=== PATIENT | male | born 1940 | race Caucasian/White ===

== ENCOUNTER 2018-07-10 06:37 | Emergency (ER) | payer MEDICARE ==
[2018-07-10 07:01] VITALS: TEMP 98.6
[2018-07-10 08:25] LABS: Appearance,Urine Clear (Clear); Bilirubin,Urine Negative (Negative); Blood,Urine Negative (Negative); Color,Urine Yellow; Glucose,Urine (UA) Negative (Negative); Ketones,Urine Negative (Negative); Leukocyte Esterase,Urine Negative (Negative); Mucus,Urine Rare /hpf; Nitrite,Urine Negative (Negative); PH, Urine 6.5 (5.0-8.0); Protein,Urine 1+ (Negative); RBC,Urine 1 /hpf (0-5); Specific Gravity,Urine 1.024 (1.001-1.035); WBC,Urine 2 /hpf (0-5)
[2018-07-10 09:04] LABS: Amphetamine Screen,Urine Not Detected (NotDetected); Barbiturate Screen,Urine Not Detected (NotDetected); Benzodiazepines Screen,Urine Not Detected (NotDetected); Cocaine Screen,Urine Not Detected (NotDetected); Methadone Screen, Urine Not Detected (NotDetected); Opiate Screen,Urine Not Detected (NotDetected); Oxycodone Screen, Urine Not Detected (NotDetected); Phencyclidine Screen,Urine Not Detected (NotDetected); Tricyclic Antidepressant,Urine Not Detected (NotDetected); Urn Cannabinoid Scrn Not Detected (NotDetected)
--- NOTE | 2018-07-10 09:08 | XR ---
EXAMINATION TYPE: XR chest 2V DATE OF EXAM: 07/10/2018 COMPARISON: NONE HISTORY: Cough per order. TECHNIQUE: Frontal and lateral views of the chest are obtained. FINDINGS: Background chronic emphysematous change is felt present. There is no focal air space opacit y, pleural effusion, or pneumothorax seen. The cardiac silhouette size is upper limits of normal. Po stsurgical change to left shoulder is partially imaged. Multilevel spurring in the thoracic spine is present. IMPRESSION: Chronic changes without acute pulmonary process.
[2018-07-10 09:14] LABS: Basophils # (A) 0.1 k/uL (0-0.2); Basophils % (A) 1 %; Eosinophils # (A) 0.2 k/uL (0-0.7); Eosinophils % (A) 3 %; HCT 45.8 % (39.0-53.0); Lymphocytes # (A) 1.4 k/uL (1.0-4.8); Lymphocytes % (A) 17 %; MCH 31.3 pg (25.0-35.0); MCHC 32.7 g/dL (31.0-37.0); MCV 95.7 fL (80.0-100.0); Mean Platelet Volume 7.6; Monocytes # (A) 0.6 k/uL (0-1.0); Monocytes % (A) 7 %; Neutrophils % (A) 72 %; Platelet Count 155 k/uL (150-450); RBC 4.78 m/uL (4.30-5.90); RDW 15.1 % (11.5-15.5); WBC 8.3 k/uL (3.8-10.6)
[2018-07-10 09:17] LABS: ALT 29 U/L (21-72); AST 24 U/L (17-59); Albumin 3.5 g/dL (3.5-5.0); Alkaline Phosphatase 59 U/L (38-126); Anion Gap 4 mmol/L; Blood Urea Nitrogen 15 mg/dL (9-20); Carbon Dioxide 26 mmol/L (22-30); Chloride 109 mmol/L (98-107); Glucose 103 mg/dL (74-99); Potassium 4.3 mmol/L (3.5-5.1); Sodium 139 mmol/L (137-145); Total Bilirubin 2.4 mg/dL (0.2-1.3); Total Protein 5.9 g/dL (6.3-8.2)
[2018-07-10 09:43] LABS: Creatine Kinase MB 1.2 ng/mL (0.0-2.4)
[2018-07-10 09:47] LABS: Troponin I 0.035 ng/mL (0.000-0.034)
--- NOTE | 2018-07-10 13:07 | ED ---
Psych HPI - General Chief Complaint: Psychiatric Symptoms Stated Complaint: Mental health Time Seen by Provider: 07/10/18 07:44 Source: patient, RN notes reviewed Mode of arrival: ambulatory - History of Present Illness Initial Comments: This is a 70-year-old male history depression who over the past 2 weeks is had his medication which included trazodone and she takes for sleep also Wellbutrin. He's been here from [place] for that period time he states been feeling more depressed and despondent these has some dizziness lightheadedness no fevers chills sweats or chest pain he's been having strange thoughts but denies any overt suicidal thought or ideation. No other complaints at this time MD Complaint: feels depressed - Related Data Home Medications Medication Instructions Recorded Confirmed Acetaminophen [Tylenol] 500 mg PO Q6H PRN 07/10/18 07/10/18 Apixaban [Eliquis] 5 mg PO BID 07/10/18 07/10/18 Furosemide [Lasix] 40 mg PO DAILY 07/10/18 07/10/18 Metoprolol Tartrate [Lopressor] 100 mg PO BID 07/10/18 07/10/18 buPROPion XL [Wellbutrin Xl] 300 mg PO DAILY 07/10/18 07/10/18 traZODone HCL [Desyrel] 200 - 400 mg PO HS 07/10/18 07/10/18 Previous Rx's Medication Instructions Recorded buPROPion XL [Wellbutrin Xl] 300 mg PO DAILY #30 tab.er.24h 07/10/18 Allergies Allergy/AdvReac Type Severity Reaction Status Date / Time amoxicillin AdvReac Nausea & Verified 07/10/18 07:56 Vomiting Review of Systems ROS Statement: Those systems with pertinent positive or pertinent negative responses have been documented in the HPI. ROS Other: All systems not noted in ROS Statement are negative. Past Medical History Past Medical History: Atrial Fibrillation, Hypertension History of Any Multi-Drug Resistant Organisms: MRSA Date of last positivie culture/infection: 2009 MDRO Source:: left hip Past Surgical History: Joint Replacement, Orthopedic Surgery Additional Past Surgical History / Comment(s): bilateral knees, left hip, cataract sx bilateral, shoulder sx Past Psychological History: Anxiety, Depression Smoking Status: Never smoker Past Alcohol Use History: Rare Past Drug Use History: None Reported General Exam - General Exam Comments Initial Comments: Is a well-developed well-nourished awake alert oriented 3 male Limitations: no limitations General appearance: alert, in no apparent distress Head exam: Present: atraumatic, normocephalic, normal inspection Eye exam: Present: normal appearance, PERRL, EOMI. Absent: scleral icterus, conjunctival injection, periorbital swelling ENT exam: Present: normal exam, mucous membranes moist Neck exam: Present: normal inspection. Absent: tenderness, meningismus, lymphadenopathy Respiratory exam: Present: normal lung sounds bilaterally. Absent: respiratory distress, wheezes, rales, rhonchi, stridor Cardiovascular Exam: Present: irregular rhythm. Absent: systolic murmur, diastolic murmur, rubs, gallop, clicks GI/Abdominal exam: Present: soft, normal bowel sounds. Absent: distended, tenderness, guarding, rebound, rigid Extremities exam: Present: normal inspection, full ROM, normal capillary refill. Absent: tenderness, pedal edema, joint swelling, calf tenderness Back exam: Present: other (Some kyphosis noted) Neurological exam: Present: alert, oriented X3, CN II-XII intact Psychiatric exam: Present: depressed, flat affect. Absent: suicidal ideation Skin exam: Present: warm, dry, intact, normal color. Absent: rash Course Vital Signs 07/10/18 06:51 Temperature 98.6 F Pulse Rate 72 Respiratory 20 Rate Blood Pressure 155/92 O2 Sat by Pulse 96 Oximetry Medical Decision Making - Medical Decision Making Patient was medically cleared. He has evaluate the patient is currently not a risk to himself or anyone COPD discharged and accommodation*Benadryl abuse and p.m. for sleep Wellbutrin to be - Lab Data Result diagrams: 07/10/18 08:48 07/10/18 08:48 Lab Results 07/10/18 07/10/18 07/10/18 Range/Units 08:15 08:48 08:48 WBC 8.3 (3.8-10.6) k/uL RBC 4.78 (4.30-5.90) m/uL Hgb 15.0 (13.0-17.5) gm/dL Hct 45.8 (39.0-53.0) % MCV 95.7 (80.0-100.0) fL MCH 31.3 (25.0-35.0) pg MCHC 32.7 (31.0-37.0) g/dL RDW 15.1 (11.5-15.5) % Plt Count 155 (150-450) k/uL Neutrophils % 72 % Lymphocytes % 17 % Monocytes % 7 % Eosinophils % 3 % Basophils % 1 % Neutrophils # 6.0 (1.3-7.7) k/uL Lymphocytes # 1.4 (1.0-4.8) k/uL Monocytes # 0.6 (0-1.0) k/uL Eosinophils # 0.2 (0-0.7) k/uL Basophils # 0.1 (0-0.2) k/uL Sodium (137-145) mmol/L Potassium (3.5-5.1) mmol/L Chloride (98-107) mmol/L Carbon Dioxide (22-30) mmol/L Anion Gap mmol/L BUN (9-20) mg/dL Creatinine (0.66-1.25) mg/dL Est GFR (CKD-EPI)AfAm (>60 ml/min/1.73 sqM) Est GFR (CKD-EPI)NonAf (>60 ml/min/1.73 sqM) Glucose (74-99) mg/dL Calcium (8.4-10.2) mg/dL Magnesium (1.6-2.3) mg/dL Total Bilirubin (0.2-1.3) mg/dL AST (17-59) U/L ALT (21-72) U/L Alkaline Phosphatase (38-126) U/L Total Creatine Kinase 82 (55-170) U/L CK-MB (CK-2) 1.2 (0.0-2.4) ng/mL CK-MB (CK-2) Rel Index 1.5 Troponin I 0.035 H* (0.000-0.034) ng/mL Total Protein (6.3-8.2) g/dL Albumin (3.5-5.0) g/dL Urine Color Yellow Urine Appearance Clear (Clear) Urine pH 6.5 (5.0-8.0) Ur Specific [place] 1.024 (1.001-1.035) Urine Protein 1+ H (Negative) Urine Glucose (UA) Negative (Negative) Urine Ketones Negative (Negative) Urine Blood Negative (Negative) Urine Nitrite Negative (Negative) Urine Bilirubin Negative (Negative) Urine Urobilinogen 12.0 (<2.0) mg/dL Ur Leukocyte Esterase Negative (Negative) Urine RBC 1 (0-5) /hpf Urine WBC 2 (0-5) /hpf Urine Mucus Rare H (None) /hpf Urine Opiates Screen Not Detected (NotDetected) Ur Oxycodone Screen Not Detected (NotDetected) Urine Methadone Screen Not Detected (NotDetected) Ur Propoxyphene Screen Not Detected (NotDetected) Ur Barbiturates Screen Not Detected (NotDetected) U Tricyclic Antidepress Not Detected (NotDetected) Ur Phencyclidine Scrn Not Detected (NotDetected) Ur Amphetamines Screen Not Detected (NotDetected) U Methamphetamines Scrn Not Detected (NotDetected) U Benzodiazepines Scrn Not Detected (NotDetected) Urine Cocaine Screen Not Detected (NotDetected) U Marijuana (THC) Screen Not Detected (NotDetected) 07/10/18 07/10/18 Range/Units 08:48 12:16 WBC (3.8-10.6) k/uL RBC (4.30-5.90) m/uL Hgb (13.0-17.5) gm/dL Hct (39.0-53.0) % MCV (80.0-100.0) fL MCH (25.0-35.0) pg MCHC (31.0-37.0) g/dL RDW (11.5-15.5) % Plt Count (150-450) k/uL Neutrophils % % Lymphocytes % % Monocytes % % Eosinophils % % Basophils % % Neutrophils # (1.3-7.7) k/uL Lymphocytes # (1.0-4.8) k/uL Monocytes # (0-1.0) k/uL Eosinophils # (0-0.7) k/uL Basophils # (0-0.2) k/uL Sodium 139 (137-145) mmol/L Potassium 4.3 (3.5-5.1) mmol/L Chloride 109 H (98-107) mmol/L Carbon Dioxide 26 (22-30) mmol/L Anion Gap 4 mmol/L BUN 15 (9-20) mg/dL Creatinine 0.82 (0.66-1.25) mg/dL Est GFR (CKD-EPI)AfAm >90 (>60 ml/min/1.73 sqM) Est GFR (CKD-EPI)NonAf 85 (>60 ml/min/1.73 sqM) Glucose 103 H (74-99) mg/dL Calcium 9.0 (8.4-10.2) mg/dL Magnesium 2.0 (1.6-2.3) mg/dL Total Bilirubin 2.4 H (0.2-1.3) mg/dL AST 24 (17-59) U/L ALT 29 (21-72) U/L Alkaline Phosphatase 59 (38-126) U/L Total Creatine Kinase (55-170) U/L CK-MB (CK-2) (0.0-2.4) ng/mL CK-MB (CK-2) Rel Index Troponin I 0.029 (0.000-0.034) ng/mL Total Protein 5.9 L (6.3-8.2) g/dL Albumin 3.5 (3.5-5.0) g/dL Urine Color Urine Appearance (Clear) Urine pH (5.0-8.0) Ur Specific [place] (1.001-1.035) Urine Protein (Negative) Urine Glucose (UA) (Negative) Urine Ketones (Negative) Urine Blood (Negative) Urine Nitrite (Negative) Urine Bilirubin (Negative) Urine Urobilinogen (<2.0) mg/dL Ur Leukocyte Esterase (Negative) Urine RBC (0-5) /hpf Urine WBC (0-5) /hpf Urine Mucus (None) /hpf Urine Opiates Screen (NotDetected) Ur Oxycodone Screen (NotDetected) Urine Methadone Screen (NotDetected) Ur Propoxyphene Screen (NotDetected) Ur Barbiturates Screen (NotDetected) U Tricyclic Antidepress (NotDetected) Ur Phencyclidine Scrn (NotDetected) Ur Amphetamines Screen (NotDetected) U Methamphetamines Scrn (NotDetected) U Benzodiazepines Scrn (NotDetected) Urine Cocaine Screen (NotDetected) U Marijuana (THC) Screen (NotDetected) - EKG Data -: EKG Interpreted by Me (EKG did show evidence of atrial fibrillation rate was 69 QRS 84 QT since QT) - Radiology Data Radiology results: report reviewed (Did review the imaging and report no acute findings.), image reviewed Disposition Clinical Impression: Depression, Adjustment reaction Disposition: HOME SELF-CARE Condition: Good Instructions (If sedation given, give patient instructions): Stress (ED), Mood Disorders (ED), Depression (ED) Prescriptions: buPROPion XL [Wellbutrin Xl] 300 mg PO DAILY #30 tab.er.24h Is patient prescribed a controlled substance at d/c from ED?: No Referrals: Inderjit Velazco MD [Primary Care Provider] - 1-2 days
[2018-07-10 13:21] VITALS: BP 149/78; PULSE 68; RESP 18
== END 2018-07-10 13:19 | disposition home or self-care (01) ==
LOC: EC 06:37
DX: F32.9 Major depressive disorder, single episode, unspecified (principal); F43.20 Adjustment disorder, unspecified; I48.91 Unspecified atrial fibrillation; I10 Essential (primary) hypertension; F41.9 Anxiety disorder, unspecified; Z86.14 Personal history of Methicillin resistant Staphylococcus aureus infection; Z79.01 Long term (current) use of anticoagulants; Z79.899 Other long term (current) drug therapy; Z88.0 Allergy status to penicillin; Z96.653 Presence of artificial knee joint, bilateral; Z96.642 Presence of left artificial hip joint
CPT/HCPCS: 36415; 71046; 80053; 80306; 81001; 82075; 82550; 82553; 83735; 84484; 85025; 93005; 99284

== ENCOUNTER → 2019-01-29 | Outpatient (CLI) | payer MEDICARE ==
--- NOTE | 2019-01-29 14:33 | XR ---
EXAMINATION TYPE: XR orbit complete bilateral DATE OF EXAM: 01/29/2019 COMPARISON: None HISTORY: Retained foreign body in the orbits TECHNIQUE: Three-view orbits FINDINGS: No metallic foreign bodies are evident within or about the orbits. Dental hardware is noted . IMPRESSION: 1. No metallic foreign bodies to contraindicate MRI
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
== END | disposition home or self-care (01) ==
LOC: RADMRIMAIN 13:30
PROVIDERS: ATTEND Internal Medicine
DX: G31.9 Degenerative disease of nervous system, unspecified (principal); I67.82 Cerebral ischemia; Z87.821 Personal history of retained foreign body fully removed
CPT/HCPCS: 70200; 70551

== ENCOUNTER → 2019-06-16 | Outpatient (CLI) | payer MEDICARE ==
[2019-06-16 19:24] LABS: African American GFR (CKD) 82.6 (60.0-200.0); Anion Gap 7.9 mmol/L (4.00-12.00); Calcium 9.7 mg/dL (8.7-10.3); Carbon Dioxide 32.1 mmol/L (21.6-31.8); Non-African American GFR(CKD) 71.3 (60.0-200.0); Potassium 3.9 mmol/L (3.5-5.5)
== END | disposition home or self-care (01) ==
LOC: LABWHC1 10:39
PROVIDERS: ATTEND Internal Medicine Interventional Cardiology
DX: N18.9 Chronic kidney disease, unspecified (principal); I50.9 Heart failure, unspecified
CPT/HCPCS: 36415; 80048

== ENCOUNTER → 2019-07-21 | Outpatient (CLI) | payer MEDICARE ==
[2019-07-21 16:17] LABS: Anion Gap 8.6 mmol/L (4.00-12.00); BUN/Creat Ratio 17.86 Ratio (12.00-20.00); Calcium 9.6 mg/dL (8.7-10.3); Carbon Dioxide 32.4 mmol/L (21.6-31.8); Non-African American GFR(CKD) 47.4 (60.0-200.0); Potassium 3.4 mmol/L (3.5-5.5)
== END | disposition home or self-care (01) ==
LOC: LABWHC1 10:11
PROVIDERS: ATTEND Internal Medicine Interventional Cardiology
DX: N18.9 Chronic kidney disease, unspecified (principal)
CPT/HCPCS: 36415; 80048

== ENCOUNTER → 2019-08-03 | Outpatient (CLI) | payer MEDICARE | END | disposition home or self-care (01) | LOC: CPPFTMAIN 10:16 | PROVIDERS: ATTEND Internal Medicine | DX: R94.2 Abnormal results of pulmonary function studies (principal); R06.00 Dyspnea, unspecified | CPT/HCPCS: 94060; 94726; 94729 ==

== ENCOUNTER 2019-09-04 12:35 | Emergency (ER) | payer MEDICARE ==
[2019-09-04 12:42] VITALS: TEMP 98
[2019-09-04] MEDS ORDERED: ACETAMINOPHEN TAB 325 MG TAB PO STA (13:17)
--- NOTE | 2019-09-04 14:17 | CT ---
EXAMINATION TYPE: CT brain del tong con DATE OF EXAM: 09/04/2019 COMPARISON: None HISTORY: Fall Headache. Neck pain CT DLP: 1538 mGycm Automated exposure control for dose reduction was used. Exam performed without contrast. There is cerebral cortical atrophy. There is no mass effect nor midline shift. There is no sign of in tracranial hemorrhage. Skull base is intact. The calvarium is intact. Cervical vertebra have normal alignment. There is some disc space narrowing at C5-6 and C6-7. There i s mild spurring of the endplates. The posterior elements are intact. There is multilevel level hypert rophic cervical facet arthropathy. There is no evidence of a fracture. There is uncovertebral spurrin g and right side C3-4 neural foraminal stenosis. There is some bony spinal stenosis at C3-4. IMPRESSION: Cerebral atrophy. No acute intracranial abnormality. Multilevel cervical spondylotic changes. No fracture seen.
[2019-09-04 14:18] VITALS: RESP 18
--- NOTE | 2019-09-04 14:19 | XR ---
EXAMINATION TYPE: XR ribs RT w pa chest xray DATE OF EXAM: 09/04/2019 COMPARISON: 07/10/2018 HISTORY: Fall. Rib pain. TECHNIQUE: 5 views FINDINGS: Heart is normal. The lungs are clear of consolidation. There is no pleural effusion or pneu mothorax. There is some arthritic change in the right shoulder joint. There is deformity of the anter ior right 10th rib suggestive of an old fracture. I see no acute fracture. There is old fracture late ral anterior right seventh rib. IMPRESSION: No active cardiopulmonary disease. No acute rib fracture seen.
--- NOTE | 2019-09-04 14:20 | ED ---
Fall HPI - General Chief Complaint: Fall Stated Complaint: Fall Time Seen by Provider: 09/04/19 12:38 Source: EMS Mode of arrival: EMS - History of Present Illness Initial Comments: Patient is a 79-year-old male past history of A. fib on Eliquis who presents to the emergency department after sustaining a fall. Patient does have issues with coordination. states that he is being evaluated currently for Parkinson disease. He walks daily. Patient reports that he lost his balance and began running to try and catch his balance. Patient's mated onto the grass and fell onto his right side. He is reporting to mild right shoulder pain and pain to his right flank. He is on anticoagulation. Has abrasions to his nasal bridge which he thinks is secondary to his glasses. I believe he hit his head. Denies any neck pain. No painful or tremors. No abdominal pain. No syncopal episode. No other alleviating, precipitating or modifying factors - Related Data Home Medications Medication Instructions Recorded Confirmed Acetaminophen [Tylenol] 500 mg PO Q6H PRN 07/10/18 07/10/18 Apixaban [Eliquis] 5 mg PO BID 07/10/18 07/10/18 Furosemide [Lasix] 40 mg PO DAILY 07/10/18 07/10/18 Metoprolol Tartrate [Lopressor] 100 mg PO BID 07/10/18 07/10/18 buPROPion XL [Wellbutrin Xl] 300 mg PO DAILY 07/10/18 07/10/18 traZODone HCL [Desyrel] 200 - 400 mg PO HS 07/10/18 07/10/18 Previous Rx's Medication Instructions Recorded buPROPion XL [Wellbutrin Xl] 300 mg PO DAILY #30 tab.er.24h 07/10/18 Allergies Allergy/AdvReac Type Severity Reaction Status Date / Time amoxicillin AdvReac Nausea & Verified 07/10/18 07:56 Vomiting Review of Systems ROS Statement: Those systems with pertinent positive or pertinent negative responses have been documented in the HPI. ROS Other: All systems not noted in ROS Statement are negative. Past Medical History Past Medical History: Atrial Fibrillation, Hypertension History of Any Multi-Drug Resistant Organisms: MRSA Date of last positivie culture/infection: 2009 MDRO Source:: left hip Past Surgical History: Joint Replacement, Orthopedic Surgery Additional Past Surgical History / Comment(s): bilateral knees, left hip, cataract sx bilateral, shoulder sx Past Psychological History: Anxiety, Depression Smoking Status: Never smoker Past Alcohol Use History: Rare Past Drug Use History: None Reported General Exam Limitations: no limitations Course Vital Signs 09/04/19 09/04/19 09/04/19 12:38 14:17 14:48 Temperature 98.0 F 98.0 F Pulse Rate 64 50 L 95 Respiratory 16 18 18 Rate Blood Pressure 126/75 126/75 134/78 O2 Sat by Pulse 96 96 95 Oximetry Medical Decision Making - Medical Decision Making Upon arrival patient is placed into room 8. A thorough history and physical exam was performed. Patient is sent over for a CT of his brain and cervical spine. X-rays are also performed the patient's right shoulder and right-sided ribs with chest x-ray. CT of the patient's brain and cervical spine demonstrates cerebral atrophy. No acute intracranial abnormality. Multilevel cervical spondylitic changes. No fractures seen. X-ray of the patient's right rib does demonstrate multiple old right rib fractures of ribs 7 and 10. No active cardio pulmonary disease. No acute rib fracture. X-ray of the right shoulder demonstrates moderate arthritis. The patient is able to get up and ambulates well on his own. He is able to move all of his extremities. Patient will be discharged home at this time. Follow up with his primary care physician in regards to his symptoms. Return to the emergency department for any new or worsening symptoms per patient was discharged in stable condition Disposition Clinical Impression: Fall, Right shoulder pain, Rib pain on right side Disposition: HOME SELF-CARE Condition: Stable Instructions (If sedation given, give patient instructions): Fall Prevention for Older Adults (ED) Additional Instructions: Please follow up with your primary care doctor. Return to the emergency room if any new or worsening symptoms Is patient prescribed a controlled substance at d/c from ED?: No Referrals: Inderjit Velazco MD [Primary Care Provider] - 1-2 days Time of Disposition: 14:33
--- NOTE | 2019-09-04 14:22 | XR ---
EXAMINATION TYPE: XR shoulder complete RT DATE OF EXAM: 09/04/2019 COMPARISON: NONE HISTORY: Shoulder pain TECHNIQUE: 3 views FINDINGS: There is narrowing and spurring at the glenohumeral joint. There is spurring at the AC join t. I see no fracture nor dislocation. IMPRESSION: Moderate osteoarthritis. No fracture seen.
[2019-09-04 14:50] VITALS: BP 134/78; PULSE 95
== END 2019-09-04 14:53 | disposition home or self-care (01) ==
LOC: EC 12:35
DX: M47.812 Spondylosis without myelopathy or radiculopathy, cervical region (principal); M13.811 Other specified arthritis, right shoulder; I10 Essential (primary) hypertension; R07.81 Pleurodynia; R10.9 Unspecified abdominal pain; G31.9 Degenerative disease of nervous system, unspecified; F41.9 Anxiety disorder, unspecified; F32.9 Major depressive disorder, single episode, unspecified; Z79.01 Long term (current) use of anticoagulants; Z79.899 Other long term (current) drug therapy; Z88.0 Allergy status to penicillin; W18.30XA Fall on same level, unspecified, initial encounter; Y92.009 Unspecified place in unspecified non-institutional (private) residence as the place of occurrence of the external cause
CPT/HCPCS: 70450; 72125; 99284

== ENCOUNTER → 2019-10-04 | Outpatient (CLI) | payer MEDICARE ==
[2019-10-04 18:03] LABS: Hemoglobin A1C 5.1 % (4.0-6.0)
== END | disposition home or self-care (01) ==
LOC: LABWHC1 09:11
PROVIDERS: ATTEND Psychiatry & Neurology Neurology
DX: R73.9 Hyperglycemia, unspecified (principal)
CPT/HCPCS: 36415; 83036

== ENCOUNTER → 2019-10-28 | Outpatient (CLI) | payer MEDICARE ==
--- NOTE | 2019-10-28 22:47 | MR ---
EXAMINATION TYPE: MR cervical spine wo con DATE OF EXAM: 10/28/2019 COMPARISON: Cervical spine 09/04/2019 HISTORY: Cervical radiculopathy, ataxia, falling CONTRAST: Performed utilizing 0 mL intravenous Gadavist gadolinium contrast. TECHNIQUE: Multiplanar multiecho imaging on a 3.0 Rachel magnet is performed through the cervical spin e. FINDINGS: The craniovertebral junction is normal. Vertebral body alignment is thoracic kyphosis with compensatory lordosis. C7-T1: Minimal disc bulge is present. No significant thecal sac compression is evident. No cord cont act is evident. No spinal canal stenosis or neural foraminal stenosis present.. C6-7: There is loss of disc height is level. Residual minimal disc bulging is anterior thecal sac fla ttening. No spinal canal stenosis present. Uncovertebral joint hypertrophy is minimal foraminal narro wing.. C5-6: Broad-based disc bulge has mild anterior thecal sac compression. No cord contact is evident. No spinal canal stenosis present. Neural foramen are patent.. C4-5: There is a right paracentral focal protrusion. This has moderate anterior thecal sac compressio n. Cord contact and mild cord deformity is present. AP spinal canal stenosis is not present. Some pos terior lateral thecal sac compression is noted. Bilateral foramen are narrowed.. C3-4: Broad-based central disc herniation is present with moderate to severe anterior thecal sac comp ression. Cord contact and cord deformity is present. AP spinal canal stenosis measuring 0.6 cm is pre sent. Signal abnormality within the cord is not identified. Neural foramen are patent.. C2-3: No focal disc herniation or significant disc bulge is evident. No spinal canal stenosis or ti ral foraminal stenosis is present. IMPRESSIONS: 1. Central disc herniation C3-4 with thecal sac compression and cord compression with deformity contr ibuting to spinal canal stenosis. 2. Right paracentral disc herniation with moderate anterior thecal sac compression cord contact and s ome cord deformity. No stenosis is present.
== END | disposition home or self-care (01) ==
LOC: RADMRIMAIN 15:35
PROVIDERS: ATTEND Psychiatry & Neurology Neurology
DX: M50.21 Other cervical disc displacement, high cervical region (principal); M43.8X2 Other specified deforming dorsopathies, cervical region
CPT/HCPCS: 72141

== ENCOUNTER → 2019-11-20 | Outpatient (CLI) | payer MEDICARE ==
--- NOTE | 2019-11-23 10:48 | MR ---
EXAMINATION TYPE: MR lumbar spine wo con DATE OF EXAM: 11/20/2019 COMPARISON: NONE HISTORY: Spinal stenosis w/ neurogenic claudication, imbalance TECHNIQUE: T1 and T2 axial and sagittal images of the lumbar spine are submitted. FINDINGS: There is no abnormal signal seen within the visualized spinal cord or paraspinal soft tissu es. There is atrophy of the paraspinal musculature. Aorta of normal caliber. There is a subcentimeter lesion involving the left kidney likely related to a simple cyst. There is severe degenerative disc disease at all levels the exception of L5-S1. At T12-L1 severe degenerative disc disease with facet arthropathy. No canal stenosis. There is mild r ight-sided foraminal encroachment. At L1-2 there is severe degenerative disc disease with broad-based disc bulging, facet arthropathy an d ligamentum flavum hypertrophy. Mild to moderate canal stenosis and bilateral foraminal encroachment . At L2-3 there is severe degenerative disc disease with discogenic marrow changes. Broad-based central disc protrusion with moderate effacement of the thecal sac. Facet arthropathy and ligamentum flavum contribute to moderate canal stenosis and bilateral foraminal encroachment. At L3-4 there is severe degenerative disc disease. There is ligamentum flavum hypertrophy and facet a rthropathy with broad-based disc protrusion. Moderate canal stenosis and [id number] bilateral f oraminal encroachment greater on the right At L4-5 there is severe degenerative disc disease with grade 1 anterolisthesis. There is marked facet arthropathy. Moderate to severe bilateral foraminal encroachment with advanced facet arthropathy and lateral recess stenosis bilaterally. Severe canal stenosis. At L5-S1 there is advanced facet arthropathy. There is degenerative disc disease and mild bilateral f oraminal encroachment. Broad-based central disc bulging with no canal stenosis. IMPRESSION: 1. Severe degenerative disc disease at virtually all levels with multilevel canal stenosis and forami nal encroachment as discussed above. 2. Grade 1 anterior listhesis of L4 on L5 appears to be degenerative secondary to advanced facet arth ropathy and results in severe canal stenosis. Nerve root impingement suspected bilaterally.
== END | disposition home or self-care (01) ==
LOC: RADMRIMAIN 10:20
PROVIDERS: ATTEND Psychiatry & Neurology Neurology
DX: M48.062 Spinal stenosis, lumbar region with neurogenic claudication (principal); M43.16 Spondylolisthesis, lumbar region; M51.36 Other intervertebral disc degeneration, lumbar region; M47.816 Spondylosis without myelopathy or radiculopathy, lumbar region
CPT/HCPCS: 72148

== ENCOUNTER → 2020-09-18 | Outpatient (CLI) | payer MEDICARE ==
[2020-09-18 09:28] VITALS: BP 128/72; PULSE 57; RESP 18; TEMP 98.6
--- NOTE | 2020-09-18 09:42 | P.PAINCN ---
History of Present Illness - Reason for Consult Consult date: 09/18/20 - History of Present Illness This is a 80-year-old patient referred by Dr. Schafer with a chief complaint of back pain for 2 days. Of note he does have a history of atrial fibrillation on Eilquis. Has a history of cervical fusion in 01/2020. Patient notes that his primary concern and complaint is balance. He feels that he spontaneously loses balance is had multiple falls over the past year and a half. There are no specific triggers, he could just be standing or sitting and he could feel like he is about to lose his balance and fall over. She does talk about a little bit of low back pain that is nonradiating described as sharp and stabbing. However it is not very concerning to him and overall he feels like it is almost gone away. After the walker currently due to his balance issues, not because of pain. He has not had any conservative therapy for this pain. Currently uses gabapentin as prescribed by Dr. Schafer for low back pain and balance. He saw Dr Gutierrez who at this point is not sure what is going on with him and referred him to [facility] neurology. Patient denies adverse drug effects from medications. Patient also denies new- onset weakness, bowel/bladder incontinence, or any other signs or symptoms of cauda equina syndrome. There are no signs of acute intoxication, and no indications of medication diversion or overuse. In addition to above, 13-point review of systems is also negative for chest pain, shortness of breath, changes in vision, changes in hearing, new onset weakness, abdominal pain, diarrhea, extreme fatigue, malaise, fever, skin changes, homicidal or suicidal ideation, or bowel or bladder incontinence. Physical exam: Vital Signs: Reviewed in EMR GENERAL: Well appearing, in no acute distress PSYCH: Mood and affect is appropriate. Awake, alert, and oriented SKIN: Skin color, texture, turgor normal, no rashes or lesions HEENT: Normocephalic, atraumatic. EOM intact CV: No pedal edema RESP: Respirations are unlabored, no audible wheezing GI: Abdomen non-distended MUSCULOSKELETAL: Bilateral upper and lower extremity strength is normal and symmetric. No atrophy or tone abnormalities are noted. Lumbar spine: Straight leg raising in the sitting position is negative for radicular pain. No pain to palpation over the lumbar spine and paraspinous muscles. Negative for pain with facet loading and back extension/rotation. Normal range of motion without pain reproduction Extremities: Peripheral joint ROM is full and pain free without obvious instability or laxity in all four extremities. No edema or skin discolorations noted. Gait: Gait is slow, walks with walker. NEUR: Bilateral upper and lower extremity coordination and muscle stretch reflexes are physiologic and symmetric. Negative clonus. No loss of sensation is noted. Cranial nerves are grossly intact. Imaging: Thoracic MRI There is mild disc desiccation but otherwise no acute thoracic abnormality. Lumbar MRI There is severe degenerative disc disease at all levels of the spine with multilevel canal stenosis and foraminal encroachment. There is grade 1 anterolisthesis of L4 on for 5 with severe spinal canal stenosis and nerve root impingement. There is also advanced facet arthropathy at L4-L5 and L5-S1. Assessment: 1. Possible vertigo? 2. Resolving axial back pain Plan: - At this Point given the patient is having limited pain that is resolving, I do not believe any form injection would be helpful for him. They do have a neurologist appointment scheduled a [facility] in October, I encouraged him to follow up with them as I do not believe any injection this point will be helpful for his pain. If he does call back with worsening axial LBP, we can do bilateral L4-5 and L5-S1 MBB. I do not believe an epidural would be helpful as the pain is not radicular in nature. I spent 50 minutes on patient care today. The time was used to review medical records including relevant urine studies and prescription history (MAPs), review of the available imaging, evaluation and examination the patient, coordination of care at the medical staff and if applicable referring physicians, as well as creation of the medical record. Past Medical History Past Medical History: Atrial Fibrillation, Cancer, Hyperlipidemia, Hypertension, Osteoarthritis (OA) Additional Past Medical History / Comment(s): hx. basal cell skin cancer, possible Parkinson's-still trying to confirm-going to [facility] for a consult, hand tremors, balance problems, hx. falls History of Any Multi-Drug Resistant Organisms: MRSA Year Discovered:: 2009 MDRO Source:: left hip Past Surgical History: Joint Replacement, Orthopedic Surgery Additional Past Surgical History / Comment(s): bilateral knees replaced, left hip replaced, dental implants, cataract sx bilateral, shoulder sx, cervical spinal surg. in 2019 Past Anesthesia/Blood Transfusion Reactions: Previous Problems w/ Anesthesia Additional Past Anesthesia/Blood Transfusion Reaction / Comm: slow to wake up @times Past Psychological History: Anxiety, Depression Smoking Status: Never smoker Past Alcohol Use History: Rare Past Drug Use History: None Reported Medications and Allergies Home Medications Medication Instructions Recorded Confirmed Type Apixaban [Eliquis] 5 mg PO BID 07/10/18 09/12/20 History Furosemide [Lasix] 40 mg PO Q48H 07/10/18 09/12/20 History Metoprolol Tartrate [Lopressor] 75 mg PO BID 07/10/18 09/12/20 History buPROPion XL [Wellbutrin Xl] 300 mg PO DAILY #30 tab.er.24h 07/10/18 09/12/20 Rx Acetaminophen [Tylenol Extra 500 mg PO Q6H PRN 09/12/20 09/12/20 History Strength] Atorvastatin [Lipitor] 10 mg PO HS 09/12/20 09/12/20 History Calcium Carbonate/Vitamin D3 1 each PO BID 09/12/20 09/12/20 History [Calcium 500 mg Chewable Tablet] Docusate [Colace] 100 mg PO BID 09/12/20 09/12/20 History Fexofenadine HCl [Marjorie Allergy] 180 mg PO DAILY 09/12/20 09/12/20 History Furosemide [Lasix] 20 mg PO Q48H 09/12/20 09/12/20 History Gabapentin [Neurontin] 300 mg PO HS 09/12/20 09/12/20 History Potassium Chloride [Klor-Con 20] 20 meq PO BID 09/12/20 09/12/20 History polyethylene glycoL 3350 [Miralax] 17 gm PO DAILY PRN 09/12/20 09/12/20 History Allergies Allergy/AdvReac Type Severity Reaction Status Date / Time amoxicillin AdvReac Nausea & Verified 09/12/20 14:48 Vomiting PQRS Measure Charge Sheet PQRS Narrative: Smoking Status Never smoker Pain Intensity [Back] 7 Scale Used Numeric (1 - 10) Home Medications: Ambulatory Orders Apixaban [Eliquis] 5 mg PO BID 07/10/18 Furosemide [Lasix] 40 mg PO Q48H 07/10/18 Metoprolol Tartrate [Lopressor] 75 mg PO BID 07/10/18 buPROPion XL [Wellbutrin Xl] 300 mg PO DAILY #30 tab.er.24h 07/10/18 Acetaminophen [Tylenol Extra Strength] 500 mg PO Q6H PRN 09/12/20 Atorvastatin [Lipitor] 10 mg PO HS 09/12/20 Calcium Carbonate/Vitamin D3 [Calcium 500 mg Chewable Tablet] 1 each PO BID 09/12/20 Docusate [Colace] 100 mg PO BID 09/12/20 Fexofenadine HCl [Marjorie Allergy] 180 mg PO DAILY 09/12/20 Furosemide [Lasix] 20 mg PO Q48H 09/12/20 Gabapentin [Neurontin] 300 mg PO HS 09/12/20 Potassium Chloride [Klor-Con 20] 20 meq PO BID 09/12/20 polyethylene glycoL 3350 [Miralax] 17 gm PO DAILY PRN 09/12/20
== END ==
LOC: PNWHC3 09:06
PROVIDERS: ATTEND Anesthesiology
DX: M54.5 Low back pain (principal); E78.5 Hyperlipidemia, unspecified; I10 Essential (primary) hypertension; M19.90 Unspecified osteoarthritis, unspecified site; I48.91 Unspecified atrial fibrillation; F41.9 Anxiety disorder, unspecified; F32.9 Major depressive disorder, single episode, unspecified; Z88.1 Allergy status to other antibiotic agents
CPT/HCPCS: 99211

== ENCOUNTER → 2021-02-22 | Outpatient (CLI) | payer MEDICARE ==
[2021-02-22 15:59] LABS: African American GFR (CKD) 76.8 (60.0-200.0); BUN/Creat Ratio 19.9 Ratio (12.00-20.00); Blood Urea Nitrogen 20.9 mg/dL (9.0-27.0); Calcium 9.3 mg/dL (8.7-10.3); Carbon Dioxide 25.5 mmol/L (20.0-27.5); Magnesium 2.1 mg/dL (1.5-2.4); Non-African American GFR(CKD) 66.3 (60.0-200.0); Potassium 4.5 mmol/L (3.5-5.5)
== END | disposition home or self-care (01) ==
LOC: LABWHC1 07:48
PROVIDERS: ATTEND Nurse Practitioner Adult Health
DX: I10 Essential (primary) hypertension (principal)
CPT/HCPCS: 36415; 80048; 83735

== ENCOUNTER 2022-10-17 14:59 | Inpatient (IN) | payer MEDICARE ==
[2022-10-17] MEDS ORDERED: FUROSEMIDE 10 MG/ML 10 ML VIAL IV STA (15:31)
--- NOTE | 2022-10-17 15:34 | ED ---
General Adult HPI - General Chief complaint: Shortness of Breath Stated complaint: fluid retention Time Seen by Provider: 10/17/22 15:00 Source: patient, RN notes reviewed, old records reviewed Mode of arrival: wheelchair Limitations: no limitations - History of Present Illness Initial comments: This is an 82-year-old male who presents emergency Department complaining of swelling to the legs and having more difficulty walking lately. Patient states she's feeling 12 pounds over the last week. Patient states she was recently told he might have pneumonia and was put on an antibiotic. Patient states during her time the swelling got worse. Patient denies any fever chills per patient denies being short of breath. Patient denies any chest pain or palpitations. Patient denies lightheadedness or dizziness. Patient states he does have a history of atrial fibrillation and high blood pressure. Patient also has some dementia. gives most of the history and patient was sent in by his primary medical care nurse practitioner - Related Data Home Medications Medication Instructions Recorded Confirmed Apixaban [Eliquis] 5 mg PO BID 07/10/18 09/12/20 Furosemide [Lasix] 40 mg PO Q48H 07/10/18 09/12/20 Metoprolol Tartrate [Lopressor] 75 mg PO BID 07/10/18 09/12/20 Acetaminophen [Tylenol Extra 500 mg PO Q6H PRN 09/12/20 09/12/20 Strength] Atorvastatin [Lipitor] 10 mg PO HS 09/12/20 09/12/20 Calcium Carbonate/Vitamin D3 1 each PO BID 09/12/20 09/12/20 [Calcium 500 mg Chewable Tablet] Docusate [Colace] 100 mg PO BID 09/12/20 09/12/20 Fexofenadine HCl [Marjorie Allergy] 180 mg PO DAILY 09/12/20 09/12/20 Furosemide [Lasix] 20 mg PO Q48H 09/12/20 09/12/20 Gabapentin [Neurontin] 300 mg PO HS 09/12/20 09/12/20 Potassium Chloride [Klor-Con 20] 20 meq PO BID 09/12/20 09/12/20 polyethylene glycoL 3350 [Miralax] 17 gm PO DAILY PRN 09/12/20 09/12/20 Previous Rx's Medication Instructions Recorded buPROPion XL [Wellbutrin Xl] 300 mg PO DAILY #30 tab.er.24h 07/10/18 Allergies Allergy/AdvReac Type Severity Reaction Status Date / Time amoxicillin AdvReac Nausea & Verified 09/12/20 14:48 Vomiting Review of Systems ROS Statement: Those systems with pertinent positive or pertinent negative responses have been documented in the HPI. ROS Other: All systems not noted in ROS Statement are negative. Past Medical History Past Medical History: Atrial Fibrillation, Cancer, Heart Failure, Hyperlipid emia, Hypertension, Osteoarthritis (OA) Additional Past Medical History / Comment(s): hx. basal cell skin cancer, possible Parkinson's-still trying to confirm-going to [facility] for a consult, hand tremors, balance problems, hx. falls History of Any Multi-Drug Resistant Organisms: MRSA Date of last positivie culture/infection: 2009 MDRO Source:: left hip Past Surgical History: Joint Replacement, Orthopedic Surgery Additional Past Surgical History / Comment(s): bilateral knees replaced, left hip replaced, dental implants, cataract sx bilateral, shoulder sx, cervical spinal surg. in 2019 Past Anesthesia/Blood Transfusion Reactions: Previous Problems w/ Anesthesia Additional Past Anesthesia/Blood Transfusion Reaction / Comment(s): slow to wake up @times Past Psychological History: Anxiety, Depression Smoking Status: Never smoker Past Alcohol Use History: Rare Past Drug Use History: None Reported General Exam - General Exam Comments Initial Comments: GENERAL: Patient is well-developed and well-nourished. Patient is nontoxic and well- hydrated and is in no acute distress. ENT: Neck is soft and supple. No significant lymphadenopathy is noted. Oropharynx is clear. Moist mucous membranes. Neck has full range of motion without eliciting any pain. EYES: The sclera were anicteric and conjunctiva were pink and moist. Extraocular movements were intact and pupils were equal round and reactive to light. Eyelids were unremarkable. PULMONARY: Unlabored respirations. Good breath sounds bilaterally. No audible rales rhonchi or wheezing was noted. CARDIOVASCULAR: There is a regular rate and rhythm without any murmurs gallops or rubs. ABDOMEN: Soft and nontender with normal bowel sounds. SKIN: Skin is clear with no lesions or rashes and otherwise unremarkable. NEUROLOGIC: Patient is alert and oriented x3. Cranial nerves II through XII are grossly intact. Motor and sensory are also intact. Normal speech, volume and content. Symmetrical smile. MUSCULOSKELETAL: Normal extremities with adequate strength and full range of motion. 3+ edema bilaterally LYMPHATICS: No significant lymphadenopathy is noted PSYCHIATRIC: Normal psychiatric evaluation. Limitations: no limitations Course Vital Signs 10/17/22 10/17/22 10/17/22 15:02 15:46 16:55 Temperature 98.6 F Pulse Rate 77 78 Respiratory 20 18 18 Rate Blood Pressure 110/75 O2 Sat by Pulse 97 98 Oximetry Medical Decision Making - Medical Decision Making EKG was interpreted by myself. EKG shows atrial fibrillation at 52 bpm QRS is 96 QT interval 444 QTC is 425 per patient's EKG shows no ST segment elevation or depression Was pt. sent in by a medical professional or institution (, PA, CLIENT ADVISOR, urgent care, hospital, or longterm...) When possible be specific @ -Primary medical care doctor sent the patient in Did you speak to anyone other than the patient for history (EMS, parent, family, police, friend...)? What history was obtained from this source @ - I spoke with the primary medical care doctor prior to the patient's arrival Did you review nursing and triage notes (agree or disagree)? Why? @ -I reviewed and agree with nursing and triage notes Were old charts reviewed (outside hosp., previous admission, EMS record, old EKG, old radiological studies, urgent care reports/EKG's, longterm records)? Report findings @ -No old charts were reviewed Differential Diagnosis (chest pain, altered mental status, abdominal pain women, abdominal pain men, vaginal bleeding, weakness, fever, dyspnea, syncope, headache, dizziness, GI bleed, back pain, seizure, CVA, palpatations, mental health, musculoskeletal)? @ -Differential Dyspnea: Coronary syndrome, arrhythmia, tamponade, asthma, COPD, pulmonary embolism, pneumonia, pneumothorax, pulmonary effusion, anaphylaxis, diabetic ketoacidosis, flailed chest, pulmonary contusion, diaphragmatic rupture, anemia, neuromuscular, this is not meant to be an all-inclusive list. EKG interpreted by me (3pts min.). @ -As above X-rays interpreted by me (1pt min.). @ -She shows some mild pulmonary edema CT interpreted by me (1pt min.). @ -None done U/S interpreted by me (1pt. min.). @ -None done What testing was considered but not performed or refused? (CT, X-rays, U/S, labs)? Why? @ -None What meds were considered but not given or refused? Why? @ -None Did you discuss the management of the patient with other professionals (professionals i.e. , PA, CLIENT ADVISOR, lab, RT, psych nurse, social worker school, ruling machine operator, teacher, credit products officer, manager case)? Give summary @ -I spoke with sound physician's and the agreed to admit the patient admitted the patient I wrote admitting orders Was smoking cessation discussed for >3mins.? @ -No Was critical care preformed (if so, how long)? @ -No Were there social determinants of health that impacted care today? How? (Homelessness, low income, unemployed, alcoholism, drug addiction, transportation, low edu. Level, literacy, decrease access to med. care, care home, rehab)? @ -No Was there de-escalation of care discussed even if they declined (Discuss DNR or withdrawal of care, Hospice)? DNR status @ -No What co-morbidities impacted this encounter? (DM, HTN, Smoking, COPD, CAD, Cancer, CVA, ARF, Chemo, Hep., AIDS, mental health diagnosis, sleep apnea, morbid obesity)? @ -None Was patient admitted / discharged? Hospital course, mention meds given and route, prescriptions, significant lab abnormalities, going to OR and other p ertinent info. @ -Patient's chest x-ray shows mild pulmonary edema. Patient also had significant bilateral leg edema and an elevated BNP patient was given Lasix in the emergency department and he urinated at least 2 L. I spoke with the sound physician's he agreed to admit the patient admitted the patient I wrote admitting orders Undiagnosed new problem with uncertain prognosis? @ -No Drug Therapy requiring intensive monitoring for toxicity (Heparin, Nitro, Insulin, Cardizem)? @ -No Were any procedures done? @ -No Diagnosis/symptom? @ -Pulmonary edema Acute, or Chronic, or Acute on Chronic? @ -Acute Uncomplicated (without systemic symptoms) or Complicated (systemic symptoms)? @ -Complicated Side effects of treatment? @ -No Exacerbation, Progression, or Severe Exacerbation? @ -No Poses a threat to life or bodily function? How? (Chest pain, [place], [place], pneumonia, PE, COPD, DKA, ARF, appy, cholecystitis, CVA, Diverticulitis, Homicidal, Suicidal, threat to staff... and all critical care pts) @ -Yes this could lead to hypoxia and end organ dysfunction Diagnosis/symptom? @ -Peripheral edema Acute, or Chronic, or Acute on Chronic? @ -Acute on chronic Uncomplicated (without systemic symptoms) or Complicated (systemic symptoms)? @ -Uncomplicated Side effects of treatment? @ -none Exacerbation, Progression, or Severe Exacerbation] @ -no Poses a threat to life or bodily function? @ -no - Lab Data Result diagrams: 10/17/22 16:03 10/17/22 16:03 Lab Results 10/17/22 10/17/22 10/17/22 Range/Units 16:03 16:03 16:03 WBC 5.7 (3.8-10.6) k/uL RBC 4.22 L (4.30-5.90) m/uL Hgb 13.8 (13.0-17.5) gm/dL Hct 42.2 (39.0-53.0) % MCV 100.0 (80.0-100.0) fL MCH 32.7 (25.0-35.0) pg MCHC 32.7 (31.0-37.0) g/dL RDW 12.3 (11.5-15.5) % Plt Count 139 L (150-450) k/uL MPV 8.2 Neutrophils % 69 % Lymphocytes % 18 % Monocytes % 7 % Eosinophils % 4 % Basophils % 1 % Neutrophils # 3.9 (1.3-7.7) k/uL Lymphocytes # 1.0 (1.0-4.8) k/uL Monocytes # 0.4 (0-1.0) k/uL Eosinophils # 0.2 (0-0.7) k/uL Basophils # 0.0 (0-0.2) k/uL PT 11.2 (9.0-12.0) sec INR 1.1 (<1.2) APTT 25.5 (22.0-30.0) sec Sodium 140 (137-145) mmol/L Potassium 4.6 (3.5-5.1) mmol/L Chloride 108 H (98-107) mmol/L Carbon Dioxide 25 (22-30) mmol/L Anion Gap 7 mmol/L BUN 28 H (9-20) mg/dL Creatinine 1.61 H (0.66-1.25) mg/dL Est GFR (CKD-EPI)AfAm 46 (>60 ml/min/1.73 sqM) Est GFR (CKD-EPI)NonAf 39 (>60 ml/min/1.73 sqM) Glucose 86 (74-99) mg/dL Plasma Lactic Acid Domenico (0.7-2.0) mmol/L Calcium 9.0 (8.4-10.2) mg/dL Magnesium 2.2 (1.6-2.3) mg/dL Total Bilirubin 1.0 (0.2-1.3) mg/dL AST 34 (17-59) U/L ALT 14 (4-49) U/L Alkaline Phosphatase 74 (38-126) U/L Troponin I (0.000-0.034) ng/mL NT-Pro-B Natriuret Pep 6050 pg/mL Total Protein 5.9 L (6.3-8.2) g/dL Albumin 3.3 L (3.5-5.0) g/dL 10/17/22 10/17/22 Range/Units 16:03 16:03 WBC (3.8-10.6) k/uL RBC (4.30-5.90) m/uL Hgb (13.0-17.5) gm/dL Hct (39.0-53.0) % MCV (80.0-100.0) fL MCH (25.0-35.0) pg MCHC (31.0-37.0) g/dL RDW (11.5-15.5) % Plt Count (150-450) k/uL MPV Neutrophils % % Lymphocytes % % Monocytes % % Eosinophils % % Basophils % % Neutrophils # (1.3-7.7) k/uL Lymphocytes # (1.0-4.8) k/uL Monocytes # (0-1.0) k/uL Eosinophils # (0-0.7) k/uL Basophils # (0-0.2) k/uL PT (9.0-12.0) sec INR (<1.2) APTT (22.0-30.0) sec Sodium (137-145) mmol/L Potassium (3.5-5.1) mmol/L Chloride (98-107) mmol/L Carbon Dioxide (22-30) mmol/L Anion Gap mmol/L BUN (9-20) mg/dL Creatinine (0.66-1.25) mg/dL Est GFR (CKD-EPI)AfAm (>60 ml/min/1.73 sqM) Est GFR (CKD-EPI)NonAf (>60 ml/min/1.73 sqM) Glucose (74-99) mg/dL Plasma Lactic Acid Domenico 0.8 (0.7-2.0) mmol/L Calcium (8.4-10.2) mg/dL Magnesium (1.6-2.3) mg/dL Total Bilirubin (0.2-1.3) mg/dL AST (17-59) U/L ALT (4-49) U/L Alkaline Phosphatase (38-126) U/L Troponin I 0.063 H* (0.000-0.034) ng/mL NT-Pro-B Natriuret Pep pg/mL Total Protein (6.3-8.2) g/dL Albumin (3.5-5.0) g/dL Disposition Clinical Impression: Acute pulmonary edema, Pedal edema Disposition: ADMITTED IP TO THIS HOSP Referrals: None,Stated [REFERRING] - 1-2 days Time of Disposition: 21:14
[2022-10-17 16:20] LABS: Basophils % (A) 1 %; Eosinophils # (A) 0.2 k/uL (0-0.7); Eosinophils % (A) 4 %; HCT 42.2 % (39.0-53.0); HGB 13.8 gm/dL (13.0-17.5); Lymphocytes % (A) 18 %; MCH 32.7 pg (25.0-35.0); MCHC 32.7 g/dL (31.0-37.0); Mean Platelet Volume 8.2; Monocytes # (A) 0.4 k/uL (0-1.0); Monocytes % (A) 7 %; Neutrophils # (A) 3.9 k/uL (1.3-7.7); Neutrophils % (A) 69 %; Platelet Count 139 k/uL (150-450); RBC 4.22 m/uL (4.30-5.90); RDW 12.3 % (11.5-15.5); WBC 5.7 k/uL (3.8-10.6)
[2022-10-17 16:30] LABS: ALT 14 U/L (4-49); AST 34 U/L (17-59); African American GFR (CKD) 46 (>60 ml/min/1.73 sqM); Albumin 3.3 g/dL (3.5-5.0); Alkaline Phosphatase 74 U/L (38-126); Anion Gap 7 mmol/L; Blood Urea Nitrogen 28 mg/dL (9-20); Carbon Dioxide 25 mmol/L (22-30); Chloride 108 mmol/L (98-107); Glucose 86 mg/dL (74-99); Magnesium 2.2 mg/dL (1.6-2.3); Non-African American GFR(CKD) 39 (>60 ml/min/1.73 sqM); Potassium 4.6 mmol/L (3.5-5.1); Sodium 140 mmol/L (137-145); Total Protein 5.9 g/dL (6.3-8.2)
[2022-10-17 16:33] LABS: INR 1.1 (<1.2); Partial Thromboplastin Time 25.5 sec (22.0-30.0); Prothrombin Time 11.2 sec (9.0-12.0)
[2022-10-17 16:38] LABS: NT-Pro-B-Type Natriuretic Pept 6050 pg/mL
--- NOTE | 2022-10-17 17:10 | XR ---
EXAMINATION TYPE: XR chest 2V DATE OF EXAM: 10/17/2022 4:51 PM CLINICAL INDICATION:Male, 82 years old with history of difficulty breathing; [facility] COMPARISON: Chest radiographs from 09/04/2019 TECHNIQUE: XR chest 2V Frontal and lateral views of the chest. FINDINGS: Lungs/Pleura: There is no evidence of pleural effusion, focal consolidation, or pneumothorax. Pulmonary vascularity: Pulmonary vascular congestion. Heart/mediastinum: Cardiomediastinal silhouette is enlarged and stable. Musculoskeletal: No acute osseous pathology. IMPRESSION: Low lung volumes with a generalized hazy appearance which could represent atelectasis versus pulmonar y edema correlate with serum BNP.
[2022-10-17] MEDS: FUROSEMIDE 10 MG/ML 4 ML VIAL IV SCH (21:57)
[2022-10-17] MEDS: METOPROLOL TARTRATE 50 MG TAB PO SCH (23:47)
[2022-10-17] MEDS: CARBIDOPA-LEVODOPA 25-100 MG 1 EACH TAB PO SCH (23:52)
[2022-10-17] MEDS: bisacodyL 5 MG TABLET.DR PO SCH (23:53)
[2022-10-17] MEDS: APIXABAN 5 MG TAB PO SCH (23:53)
[2022-10-17] MEDS: MEMANTINE 5 MG TAB PO SCH (23:53)
[2022-10-17] MEDS: GABAPENTIN 300 MG CAP PO SCH (23:53)
--- NOTE | 2022-10-18 05:03 | P.HPIM ---
History of Present Illness H&P Date: 10/18/22 Chief Complaint: Shortness of breath I was not notified by the ER regarding this patient which resulted in delayed evaluation Patient unable to provide any meaningful history he seems to be slightly confused about why he is in the hospital no family available at this time h istory was obtained by reviewing his medical chart 82-year-old male with paroxysmal atrial fibrillation, congestive heart failure, hypertension Patient reports that he's been having some trouble walking and noticed some leg edema he denies any chest pain or trouble breathing but then he says he is not sure why he is here and that it's better. We speak with his . ED noted that he was brought in due to difficulty walking with significant weight gain of about 12 pounds in one week with bilateral leg swelling. He was recently treated for pneumonia as outpatient with some antibiotics unknown what kind. Patient himself denies any coughing or shortness of breath, denies any fevers or chills, denies any chest pain or palpitations. Patient denies any falls or head injury He's not sure if he is on blood thinner he doesn't know his medications well No family available at bedside at this time review of systems Pertinent positives as noted in HPI. All other systems were reviewed and are negative, however this is unreliable on exam Constitutional: No acute distress, conversant, cooperative Eyes: Anicteric sclerae, moist conjunctiva, Pupils equal round reactive to light ENMT: NC/AT Oropharynx clear, no erythema, or exudates Neck: Supple, no masses, or JVD No carotid bruits No thyromegaly Lungs: Decreased breath sounds at lung bases with some rales Clear to percussion Normal respiratory effort, no accessory muscle use Cardiovascular: Heart regular in rate and rhythm, No murmurs, gallops, or rubs +2 bilateral peripheral edema of the legs Abdominal: Soft Nontender, no guarding, rebound or rigidity Abdomen moving with respiration Normoactive bowel sounds Extremities: No digital cyanosis Pedal pulses intact and symmetrical Radial pulses intact and symmetrical No calf tenderness Psychiatric: Alert and oriented to person, place Neuro Muscles Strength 5/5 in bilateral upper extremities 4 out of 5 in bilateral lower extremities Sensation to light touch grossly present throughout Cranial nerves II-XII grossly intact Lymphatics: no palpable cervical or supraclavicular lymph nodes Past Medical History Past Medical History: Atrial Fibrillation, Cancer, Heart Failure, Hyperlipidemia, Hypertension, Osteoarthritis (OA) Additional Past Medical History / Comment(s): hx. basal cell skin cancer, possible Parkinson's-still trying to confirm-going to [facility] for a consult, hand tremors, balance problems, hx. falls History of Any Multi-Drug Resistant Organisms: MRSA Date of last positivie culture/infection: 2009 MDRO Source:: left hip Past Surgical History: Joint Replacement, Orthopedic Surgery Additional Past Surgical History / Comment(s): bilateral knees replaced, left hip replaced, dental implants, cataract sx bilateral, shoulder sx, cervical spinal surg. in 2019 Past Anesthesia/Blood Transfusion Reactions: Previous Problems w/ Anesthesia Additional Past Anesthesia/Blood Transfusion Reaction / Comment(s): slow to wake up @times Past Psychological History: Anxiety, Depression Smoking Status: Never smoker Past Alcohol Use History: Rare Past Drug Use History: None Reported Medications and Allergies Home Medications Medication Instructions Recorded Confirmed Type Apixaban [Eliquis] 5 mg PO BID 07/10/18 10/17/22 History buPROPion XL [Wellbutrin Xl] 300 mg PO DAILY #30 tab.er.24h 07/10/18 10/17/22 Rx Fexofenadine HCl [Marjorie Allergy] 180 mg PO DAILY 09/12/20 10/17/22 History Furosemide [Lasix] 40 mg PO BID 09/12/20 10/17/22 History Carbidopa-Levodopa 25-100 mg 1.5 tab PO TID 10/17/22 10/17/22 History [Sinemet 25-100] Cyanocobalamin (Vitamin B-12) 1,000 mcg PO DAILY 10/17/22 10/17/22 History [Vitamin B-12] Docusate 50mg 50 mg PO BID 10/17/22 10/17/22 History Gabapentin 600 mg PO BID 10/17/22 10/17/22 History Memantine [Namenda] 5 mg PO BID 10/17/22 10/17/22 History Metoprolol Tartrate [Lopressor] 50 mg PO BID 10/17/22 10/17/22 History Multivitamins, Thera [Multivitamin 1 tab PO DAILY 10/17/22 10/17/22 History (formulary)] Rosuvastatin [Crestor] 20 mg PO DAILY 10/17/22 10/17/22 History Solifenacin Succinate 10 mg PO DAILY 10/17/22 10/17/22 History Spironolactone [Aldactone] 50 mg PO DAILY 10/17/22 10/17/22 History Ubidecarenone [Coenzyme Q10] 100 mg PO DAILY 10/17/22 10/17/22 History bisacodyL [Dulcolax] 5 mg PO BID 10/17/22 10/17/22 History Allergies Allergy/AdvReac Type Severity Reaction Status Date / Time amoxicillin AdvReac Nausea & Verified 10/17/22 21:49 Vomiting Physical Exam Vitals: Vital Signs Temp Pulse Pulse Resp BP BP Pulse Ox 10/18/22 02:00 51 L 10/17/22 21:31 96.2 F L 51 L 20 145/71 99 10/17/22 21:24 56 L 20 138/64 97 10/17/22 16:55 78 18 110/75 98 10/17/22 15:46 18 10/17/22 15:02 98.6 F 77 20 97 Intake and Output 10/17/22 10/17/22 10/18/22 14:59 22:59 06:59 Intake Total 50 Output Total 2900 1305 Balance -2900 -1255 Intake: Oral 50 Output: Urine 2900 1305 Other: Weight 135.624 kg Results CBC & Chem 7: 10/17/22 16:03 10/17/22 16:03 Labs: Abnormal Lab Results - Last 24 Hours (Table) 10/17/22 10/17/22 10/17/22 Range/Units 16:03 16:03 16:03 RBC 4.22 L (4.30-5.90) m/uL Plt Count 139 L (150-450) k/uL Chloride 108 H (98-107) mmol/L BUN 28 H (9-20) mg/dL Creatinine 1.61 H (0.66-1.25) mg/dL Troponin I 0.063 H* (0.000-0.034) ng/mL Total Protein 5.9 L (6.3-8.2) g/dL Albumin 3.3 L (3.5-5.0) g/dL Thrombosis Risk Factor Assmnt - Choose All That Apply Any of the Below Risk Factors Present?: Yes Each Factor Represents 1 point: Swollen legs (current) Each Risk Factor Represents 3 Points: Age 75 years or older Thrombosis Risk Factor Assessment Total Risk Factor Score: 4 Thrombosis Risk Factor Assessment Level: Moderate Risk Assessment and Plan Assessment: 82-year-old male was brought into the hospital due to bilateral lower extremity edema and difficulty ambulating , I reviewed patient medical chart, joannevictor manuel marquita has not discussed with me the admission of this patient who apparently was brought in for CHF exacerbation with anticipated length of stay more than 2 midnights Acute CHF exacerbation Not clear if this is new onset or established Check echocardiogram, no prior echocardiogram in medical chart Slightly elevated troponin we'll obtain another troponin however patient denies chest pain Continue with IV Lasix 40 mg 3 times a day Monitor urine output Daily weights Low sodium diet with free fluid restriction of 2 L per day Monitor vital signs Fall precautions PT/OT evaluation Cardiology consult Elevated proBNP 6000 Elevated creatinine unknown if it's acute kidney injury versus CK D Creatinine 1.6 BUN 28 sodium 140 potassium 4.6 Avoid nephrotoxic meds Monitor urine output Monitor renal function Paroxysmal A. fib Continue with Eliquis and metoprolol Hemoglobin 13.8 patient denies any bleeding Full code DVT prophylaxis on Eliquis for A. fib
[2022-10-18] MEDS: FUROSEMIDE 10 MG/ML 4 ML VIAL IV SCH ×3 (06:08→20:36)
[2022-10-18 07:17] LABS: African American GFR (CKD) 48 (>60 ml/min/1.73 sqM); Anion Gap 5 mmol/L; Blood Urea Nitrogen 30 mg/dL (9-20); Calcium 9.4 mg/dL (8.4-10.2); Carbon Dioxide 29 mmol/L (22-30); Chloride 104 mmol/L (98-107); Glucose 92 mg/dL (74-99); Non-African American GFR(CKD) 42 (>60 ml/min/1.73 sqM); Potassium 3.9 mmol/L (3.5-5.1); Sodium 138 mmol/L (137-145)
[2022-10-18] MEDS: MEMANTINE 5 MG TAB PO SCH ×2 (09:04→20:35)
[2022-10-18] MEDS: GABAPENTIN 300 MG CAP PO SCH ×2 (09:04→20:35)
[2022-10-18] MEDS: bisacodyL 5 MG TABLET.DR PO SCH ×2 (09:04→20:36)
[2022-10-18] MEDS: ATORVASTATIN 40 MG TAB PO SCH (09:04)
[2022-10-18] MEDS: SPIRONOLACTONE 25 MG TAB PO SCH (09:04)
[2022-10-18] MEDS: APIXABAN 5 MG TAB PO SCH ×2 (09:04→20:35)
[2022-10-18] MEDS: CARBIDOPA-LEVODOPA 25-100 MG 1 EACH TAB PO SCH ×3 (09:04→20:36)
[2022-10-18] MEDS: buPROPion XL 300 MG TAB.ER.24H PO SCH (09:04)
[2022-10-18] MEDS: METOPROLOL TARTRATE 50 MG TAB PO SCH ×2 (09:04→20:35)
--- NOTE | 2022-10-18 12:11 | P.CRDCN ---
History of Present Illness History of present illness: HISTORY OF PRESENTING ILLNESS Patient is a pleasant 82-year-old male with history of atrial fibrillation, congestive heart failure, venous insufficiency, hypertension, hyperlipidemia, Parkinson's disease who follows with Dr. Zamarripa. He presents secondary to increasing lower extremity edema, increasing weight gain and some dyspnea. Patient is somewhat poor historian however provides most of history. There was concern regarding a pneumonia approximately one week ago and had been placed on antibiotics however patient having increasing weight gain and shortness breath and therefore presented to the ER. Apparently he had gained approximately 12 pounds in the last 1 week. They state he is normally on Lasix 40 mg daily however was decreased down to 20 mg daily approximately 3 weeks ago. He also has been feeling somewhat unsteady on his feet which she blames on the Parkinson's. Denies any actual lightheadedness. He denies any history of chronic kidney disease. Creatinine was 1.6 and he has been receiving IV Lasix with improvement in creatinine to 1.5. EKG shows atrial fibrillation with slow ventricular rate 52 bpm, no significant ST or T wave abnormalities, mildly low voltage. REVIEW OF SYSTEMS At the time of my exam: CONSTITUTIONAL: Denies fever or chills. CARDIOVASCULAR: Denies chest pain, +shortness of breath, +orthopnea, no PND or palpitations. RESPIRATORY: Denies cough. GASTROINTESTINAL: Denies abdominal pain, diarrhea, constipation, nausea or vomiting. MUSCULOSKELETAL: Denies myalgias. NEUROLOGIC: Denies numbness, tingling or weakness. ENDOCRINE: Denies fatigue, weight change, polydipsia or polyurina. GENITOURINARY: Denies burning, hematuria or urgency with micturation. HEMATOLOGIC: Denies history of anemia or bleeding. PHYSICAL EXAMINATION Vital signs reviewed. CONSTITUTIONAL: No apparent distress. HEENT: Head is normocephalic. Pupils are equal, round. Sclerae anicteric. Mucous membranes of the mouth are moist. No JVD. No carotid bruit. CHEST EXAMINATION: +crackles at bases HEART EXAMINATION: Regular rate and rhythm. S1, S2 heard. No murmurs, gallops or rub. ABDOMEN: Soft, nontender. Positive bowel sounds. EXTREMITIES: 2+ peripheral pulses, 2+ lower extremity edema and no calf tenderness. NEUROLOGIC EXAMINATION: Patient is awake, alert and oriented, poor recall ASSESSMENT 1. Acute on chronic diastolic heart failure 2. Persistent atrial fibrillation with controlled ventricular rates 3. Hypertension 4. Hyperlipidemia 5. Acute kidney injury, possibly related to recent antibiotics. Per patient this is new 6. Lower extremity edema in part related to venous insufficiency, sees Dr. Pedro CASTILLO Patient's main presentation appears related to heart failure and may be related to decrease in Lasix approximately 3 weeks ago. Continue with IV Lasix and monitor response. He did have 12 pound weight gain. Some of his lower extremity edema likely related to venous insufficiency. Monitor creatinine closely. Check 2-D echo. Further recommendations to follow. Possible discharge in 24-48 hours if improves. Past Medical History Past Medical History: Atrial Fibrillation, Cancer, Heart Failure, Hyperlipidemia, Hypertension, Osteoarthritis (OA) Additional Past Medical History / Comment(s): hx. basal cell skin cancer, possible Parkinson's-still trying to confirm-going to [facility] for a consult, hand tremors, balance problems, hx. falls History of Any Multi-Drug Resistant Organisms: MRSA Date of last positivie culture/infection: 2009 MDRO Source:: left hip Past Surgical History: Joint Replacement, Orthopedic Surgery Additional Past Surgical History / Comment(s): bilateral knees replaced, left hip replaced, dental implants, cataract sx bilateral, shoulder sx, cervical spinal surg. in 2019 Past Anesthesia/Blood Transfusion Reactions: Previous Problems w/ Anesthesia Additional Past Anesthesia/Blood Transfusion Reaction / Comment(s): slow to wake up @times Past Psychological History: Anxiety, Depression Smoking Status: Never smoker Past Alcohol Use History: Rare Past Drug Use History: None Reported Medications and Allergies Home Medications Medication Instructions Recorded Confirmed Type Apixaban [Eliquis] 5 mg PO BID 07/10/18 10/17/22 History buPROPion XL [Wellbutrin Xl] 300 mg PO DAILY #30 tab.er.24h 07/10/18 10/17/22 Rx Fexofenadine HCl [Marjorie Allergy] 180 mg PO DAILY 09/12/20 10/17/22 History Furosemide [Lasix] 40 mg PO BID 09/12/20 10/17/22 History Carbidopa-Levodopa 25-100 mg 1.5 tab PO TID 10/17/22 10/17/22 History [Sinemet 25-100] Cyanocobalamin (Vitamin B-12) 1,000 mcg PO DAILY 10/17/22 10/17/22 History [Vitamin B-12] Docusate 50mg 50 mg PO BID 10/17/22 10/17/22 History Gabapentin 600 mg PO BID 10/17/22 10/17/22 History Memantine [Namenda] 5 mg PO BID 10/17/22 10/17/22 History Metoprolol Tartrate [Lopressor] 50 mg PO BID 10/17/22 10/17/22 History Multivitamins, Thera [Multivitamin 1 tab PO DAILY 10/17/22 10/17/22 History (formulary)] Rosuvastatin [Crestor] 20 mg PO DAILY 10/17/22 10/17/22 History Solifenacin Succinate 10 mg PO DAILY 10/17/22 10/17/22 History Spironolactone [Aldactone] 50 mg PO DAILY 10/17/22 10/17/22 History Ubidecarenone [Coenzyme Q10] 100 mg PO DAILY 10/17/22 10/17/22 History bisacodyL [Dulcolax] 5 mg PO BID 10/17/22 10/17/22 History Allergies Allergy/AdvReac Type Severity Reaction Status Date / Time amoxicillin AdvReac Nausea & Verified 10/17/22 21:49 Vomiting Physical Exam Vitals: Vital Signs Temp Pulse Pulse Resp BP BP Pulse Ox 10/18/22 08:50 97 10/18/22 05:00 97.9 F 48 L 18 138/67 98 10/18/22 02:00 51 L 10/17/22 21:31 96.2 F L 51 L 20 145/71 99 10/17/22 21:24 56 L 20 138/64 97 10/17/22 16:55 78 18 110/75 98 10/17/22 15:46 18 10/17/22 15:02 98.6 F 77 20 97 Intake and Output 10/17/22 10/18/22 10/18/22 22:59 06:59 14:59 Intake Total 50 240 Output Total 2900 1555 1150 Balance -2900 -1505 -910 Intake: Oral 50 240 Output: Urine 2900 1555 1150 Other: Weight 135.624 kg 127.3 kg Results 10/17/22 16:03 10/18/22 06:00 Cardiac Enzymes 10/17/22 10/17/22 10/18/22 Range/Units 16:03 16:03 05:03 AST 34 (17-59) U/L Troponin I 0.063 H* 0.066 H* (0.000-0.034) ng/mL Coagulation 10/17/22 Range/Units 16:03 PT 11.2 (9.0-12.0) sec APTT 25.5 (22.0-30.0) sec CBC 10/17/22 Range/Units 16:03 WBC 5.7 (3.8-10.6) k/uL RBC 4.22 L (4.30-5.90) m/uL Hgb 13.8 (13.0-17.5) gm/dL Hct 42.2 (39.0-53.0) % Plt Count 139 L (150-450) k/uL Comprehensive Metabolic Panel 10/17/22 10/18/22 Range/Units 16:03 06:00 Sodium 140 138 (137-145) mmol/L Potassium 4.6 3.9 (3.5-5.1) mmol/L Chloride 108 H 104 (98-107) mmol/L Carbon Dioxide 25 29 (22-30) mmol/L BUN 28 H 30 H (9-20) mg/dL Creatinine 1.61 H 1.53 H (0.66-1.25) mg/dL Glucose 86 92 (74-99) mg/dL Calcium 9.0 9.4 (8.4-10.2) mg/dL AST 34 (17-59) U/L ALT 14 (4-49) U/L Alkaline Phosphatase 74 (38-126) U/L Total Protein 5.9 L (6.3-8.2) g/dL Albumin 3.3 L (3.5-5.0) g/dL Current Medications Generic Name Dose Route Start Last Admin Trade Name Freq PRN Reason Stop Dose Admin Apixaban 5 mg 10/17/22 23:45 10/18/22 09:04 Apixaban 5 Mg Tab PO 5 mg BID AMRYA Administration Protocol Atorvastatin Calcium 40 mg 10/18/22 09:00 10/18/22 09:04 Atorvastatin 40 Mg Tab PO 40 mg DAILY MARYA Administration Bisacodyl 5 mg 10/17/22 23:45 10/18/22 09:04 Bisacodyl 5 Mg Tablet. PO 5 mg BID MARYA Administration Bupropion HCl 300 mg 10/18/22 09:00 10/18/22 09:04 Bupropion Xl 300 Mg Tab.Er.24h PO 300 mg DAILY MARYA Administration Carbidopa/Levodopa 1.5 each 10/17/22 23:45 10/18/22 09:04 Carbidopa-Levodopa 25-100 Mg 1 Each Tab PO 1.5 each TID MARYA Administration Furosemide 40 mg 10/17/22 21:15 10/18/22 06:08 Furosemide 10 Mg/Ml 4 Ml Vial IV 40 mg Q8H MARYA Administration Gabapentin 600 mg 10/17/22 23:45 10/18/22 09:04 Gabapentin 300 Mg Cap PO 600 mg BID MARYA Administration Memantine 5 mg 10/17/22 23:45 10/18/22 09:04 Memantine 5 Mg Tab PO 5 mg BID MARYA Administration Metoprolol Tartrate 50 mg 10/17/22 23:45 10/18/22 09:04 Metoprolol Tartrate 50 Mg Tab PO 50 mg BID MARYA Administration Spironolactone 50 mg 10/18/22 09:00 10/18/22 09:04 Spironolactone 25 Mg Tab PO 50 mg DAILY MARYA Administration Intake and Output 10/17/22 10/18/22 10/18/22 22:59 06:59 14:59 Intake Total 50 240 Output Total 2900 1555 1150 Balance -2900 -1505 -910 Intake: Oral 50 240 Output: Urine 2900 1555 1150 Other: Weight 135.624 kg 127.3 kg 10/17/22 16:03 10/18/22 06:00
--- NOTE | 2022-10-18 13:43 | CA ---
Transthoracic Echo Report Name: Adelfo Perry Age: 82 Gender: M : 1940 Exam Date: 10/18/2022 08:32 Exam Location: [facility] Ht (in): 70 Wt (lb): 299 Ordering Physician: Terry Ward MD Attending/Referring Phys: [id number], Sylvia Floor [employer] Operator Katya Jeffrey [facility] Procedure CPT: Indications: Heart failure Cardiac Hx: Technical Quality: Fair Contrast 1: Total Dose (mL): Contrast 2: Total Dose (mL): MEASUREMENTS (Male / Female) Normal Values 2D ECHO LV Diastolic Diameter PLAX 4.0 cm 4.2 - 5.9 / 3.9 - 5.3 cm LV Systolic Diameter PLAX 3.2 cm IVS Diastolic Thickness 1.3 cm 0.6 - 1.0 / 0.6 - 0.9 cm LVPW Diastolic Thickness 1.3 cm 0.6 - 1.0 / 0.6 - 0.9 cm LV Relative Wall Thickness 0.6 LVOT Diameter 2.0 cm Ascending Aorta Diameter 4.4 cm M-MODE Aortic Root Diameter MM 3.3 cm LA Systolic Diameter MM 4.1 cm LA Ao Ratio MM 1.3 AV Cusp Separation MM 1.2 cm DOPPLER AV Peak Velocity 230.5 cm/s AV Peak Gradient 21.2 mmHg AV Mean Velocity 178.0 cm/s AV Mean Gradient 13.4 mmHg AV Velocity Time Integral 54.0 cm AI Peak Velocity 353.0 cm/s AI Peak Gradient 49.8 mmHg AI Pressure Half Time 924.2 ms LVOT Peak Velocity 103.2 cm/s LVOT Peak Gradient 4.3 mmHg LVOT Velocity Time Integral 25.5 cm LVOT Stroke Volume 84.0 cm??? LVOT Stroke Volume Index 33.9 ml/m??? LVOT Cardiac Index 1678.6 cm???/min???m??? AV Area Cont Eq vti 1.6 cm??? AV Area Cont Eq pk 1.5 cm??? Mitral E Point Velocity 97.5 cm/s MV Deceleration Time 177.4 ms LV E' Lateral Velocity 9.1 cm/s Mitral E to LV E' Lateral Ratio 10.8 LV E' Septal Velocity 5.9 cm/s Mitral E to LV E' Septal Ratio 16.5 TR Peak Velocity 212.8 cm/s TR Peak Gradient 18.1 mmHg Right Atrial Pressure 8.0 mmHg Pulmonary Artery Systolic Pressu 26.1 mmHg Right Ventricular Systolic Press 26.1 mmHg FINDINGS Left Ventricle Moderately increased left ventricular wall thickness. Moderate concentric left ventricular hypertrophy. Left ventricular cavity size normal. Normal left ventricular systolic function with no obvious regional wall motion abnormalities. Left ventricular ejection fraction is estimated at 50-55%. Right Ventricle Moderate right ventricular dilatation. Right Atrium Severe right atrial dilatation. Left Atrium Severe left atrial dilatation. Mitral Valve Structurally normal mitral valve. Mild mitral regurgitation. Aortic Valve Trileaflet aortic valve. Diffuse thickening of the aortic valve cusps with reduced excursion. [id number] aortic regurgitation. Mild aortic stenosis with a peak gradient of 21.25 mmHg and a mean gradient of 13.40 mmHg. Tricuspid Valve Tricuspid valve not well visualized. Mild tricuspid regurgitation. Pulmonic Valve Pulmonic valve not well visualized. No pulmonic regurgitation. Pericardium No pericardial effusion. Aorta Normal size aortic root. Moderately dilated proximal ascending aorta (tube). CONCLUSIONS Left ventricular ejection fraction is estimated at 50-55%. No obvious regional wall motion abnormalities. Moderate RV dilatation Severe biatrial dilatation Mild to moderate eccentric aortic regurgitation and mild aortic stenosis Moderately dilated ascending aorta measuring at 4.4 cm Previewed by: Dr Ellis Murrieta (Electronically Signed) Final Date: 18 October 2022 13:42
[2022-10-18 14:31] VITALS: BMI 40.2
[2022-10-19] MEDS: FUROSEMIDE 10 MG/ML 4 ML VIAL IV SCH ×2 (05:23→13:48)
[2022-10-19] MEDS: METOPROLOL TARTRATE 50 MG TAB PO SCH (08:55)
[2022-10-19] MEDS: GABAPENTIN 300 MG CAP PO SCH (08:55)
[2022-10-19] MEDS: buPROPion XL 300 MG TAB.ER.24H PO SCH (08:55)
[2022-10-19] MEDS: bisacodyL 5 MG TABLET.DR PO SCH (08:55)
[2022-10-19] MEDS: ATORVASTATIN 40 MG TAB PO SCH (08:55)
[2022-10-19] MEDS: SPIRONOLACTONE 25 MG TAB PO SCH (08:55)
[2022-10-19] MEDS: CARBIDOPA-LEVODOPA 25-100 MG 1 EACH TAB PO SCH ×2 (08:55→17:17)
[2022-10-19] MEDS: APIXABAN 5 MG TAB PO SCH (08:55)
[2022-10-19] MEDS: MEMANTINE 5 MG TAB PO SCH (08:55)
[2022-10-19 09:57] VITALS: PULSE 64; RESP 18; TEMP 97.8
[2022-10-19 14:43] VITALS: BP 120/59
--- NOTE | 2022-10-19 16:17 | P.PN ---
Subjective Progress Note Date: 10/19/22 No nwe complaints. Breathing is better. Ongoing IV diuretics. Gen: awake, alert HEENT: normocephalic, atraumatic, good hearing acuity, moist mucous membranes Resp: good air exchange, breathing comfortably with no accessory muscle use CVS: good distal perfusion x 4, GI: soft, NTTP, ND : no SPT, no CVAT, velazquez catheter not present MSK: bilateral pitting edema, no clubbing Neuro: non-focal, moving all extremities Psych: cooperative, euthymic mood Assessment/Plan: 82-year-old male was brought into the hospital due to bilateral lower extremity edema and difficulty ambulating , I reviewed patient medical chart, unfortunately ED has not discussed with me the admission of this patient who apparently was brought in for CHF exacerbation with anticipated length of stay more than 2 midnights Acute CHF exacerbation Not clear if this is new onset or established Check echocardiogram, no prior echocardiogram in medical chart Slightly elevated troponin we'll obtain another troponin however patient denies chest pain Continue with IV Lasix 40 mg 3 times a day Monitor urine output Daily weights Low sodium diet with free fluid restriction of 2 L per day Monitor vital signs Fall precautions PT/OT evaluation Cardiology consult Elevated proBNP 6000 Elevated creatinine unknown if it's acute kidney injury versus CK D Creatinine 1.6 BUN 28 sodium 140 potassium 4.6 Avoid nephrotoxic meds Monitor urine output Monitor renal function Paroxysmal A. fib Continue with Eliquis and metoprolol Hemoglobin 13.8 patient denies any bleeding Full code DVT prophylaxis on Eliquis for A. fib Objective - Vital Signs Vital signs: Vital Signs Temp 97.8 F 10/19/22 08:00 Pulse 64 10/19/22 14:00 Resp 18 10/19/22 14:00 BP 120/59 10/19/22 12:00 Pulse Ox 96 10/19/22 12:00 FiO2 Intake & Output 10/18/22 10/19/22 10/19/22 18:59 06:59 18:59 Intake Total 580 250 Output Total 1825 1495 800 Balance -1245 -1245 -800 Weight 127.3 kg 125.9 kg Intake: IV 10 Invasive Line 1 10 Oral 580 240 Output: Urine 1825 1495 800 Other: Voiding Method Urinal Urinal # Voids 1 1 - Labs CBC & Chem 7: 10/17/22 16:03 10/18/22 06:00 Labs: Microbiology - Last 24 Hours (Table) 10/17/22 17:00 Blood Culture - Preliminary Blood 10/17/22 15:45 Blood Culture - Preliminary Blood
--- NOTE | 2022-10-19 16:33 | P.PN ---
Subjective HISTORY OF PRESENTING ILLNESS Patient is a pleasant 82-year-old male with history of atrial fibrillation, congestive heart failure, venous insufficiency, hypertension, hyperlipidemia, Parkinson's disease who follows with Dr. Zamarripa. He presents secondary to increasing lower extremity edema, increasing weight gain and some dyspnea. Patient is somewhat poor historian however provides most of history. There was concern regarding a pneumonia approximately one week ago and had been placed on antibiotics however patient having increasing weight gain and shortness breath and therefore presented to the ER. Apparently he had gained approximat malini 12 pounds in the last 1 week. They state he is normally on Lasix 40 mg daily however was decreased down to 20 mg daily approximately 3 weeks ago. He also has been feeling somewhat unsteady on his feet which she blames on the Parkinson's. Denies any actual lightheadedness. He denies any history of chronic kidney disease. Creatinine was 1.6 and he has been receiving IV Lasix with improvement in creatinine to 1.5. EKG shows atrial fibrillation with slow ventricular rate 52 bpm, no significant ST or T wave abnormalities, mildly low voltage. 10/19 Patient seen and examined. Patient has been maintained on IV Lasix 40 mg every 8 hours and has had good urine output. Creatinine mildly improved 1.6-1.5. Denies any shortness breath. 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 Heart rates in the 50s to 60s range. Cardiogram performed with EF 5055%, mild aortic stenosis, moderate right ventricular dilation. PHYSICAL EXAMINATION Vital signs reviewed. CONSTITUTIONAL: No apparent distress. HEENT: Head is normocephalic. Pupils are equal, round. Sclerae anicteric. Mucous membranes of the mouth are moist. No JVD. No carotid bruit. CHEST EXAMINATION: +crackles at bases HEART EXAMINATION: Regular rate and rhythm. S1, S2 heard. No murmurs, gallops or rub. ABDOMEN: Soft, nontender. Positive bowel sounds. EXTREMITIES: 2+ peripheral pulses, 2+ lower extremity edema and no calf tenderness. NEUROLOGIC EXAMINATION: Patient is awake, alert and oriented, poor recall ASSESSMENT 1. Acute on chronic diastolic heart failure 2. Persistent atrial fibrillation with controlled ventricular rates 3. Hypertension 4. Hyperlipidemia 5. Acute kidney injury, possibly related to recent antibiotics. Per patient this is new 6. Lower extremity edema in part related to venous insufficiency, sees Dr. Vasquez PLAN Patient appears to be improving and some decrease in lower extremity edema. He states he believes he is close to his baseline. Appears stable for discharge home however would discharge on increased dose, previously on Lasix [address] him on 40 mg daily. Follow-up in office in 1 week. Objective - Vital Signs Vital signs: Vital Signs Temp 97.8 F 10/19/22 08:00 Pulse 64 10/19/22 14:00 Resp 18 10/19/22 14:00 BP 120/59 10/19/22 12:00 Pulse Ox 96 10/19/22 12:00 FiO2 Intake & Output 10/18/22 10/19/22 10/19/22 18:59 06:59 18:59 Intake Total 580 250 Output Total 1825 1495 800 Balance -1245 -1245 -800 Weight 127.3 kg 125.9 kg Intake: IV 10 Invasive Line 1 10 Oral 580 240 Output: Urine 1825 1495 800 Other: Voiding Method Urinal Urinal # Voids 1 1 - Labs CBC & Chem 7: 10/17/22 16:03 10/18/22 06:00 Labs: Microbiology - Last 24 Hours (Table) 10/17/22 17:00 Blood Culture - Preliminary Blood 10/17/22 15:45 Blood Culture - Preliminary Blood
--- NOTE | 2022-10-19 16:38 | P.DS ---
Providers Date of admission: 10/17/22 21:14 Expected date of discharge: 10/19/22 Attending physician: Terry Ward MD Consults: 10/17/22 21:14 Consult Physician Routine Consulting Provider: [facility] Consult Reason/Comments: pulmunary edema Do you want consulting provider notified?: Yes Primary care physician: Stephan Holt Hospital Course: Acute CHF exacerbation CK D stage III Paroxysmal A. fib Hospital Course: 82-year-old male was brought into the hospital due to bilateral lower extremity edema and difficulty ambulating. The emergency room, patient was afebrile, 110/75, heart rate 77, 97% on room air. CBC is markable. Basic metabolic panel showed BUN 28, creatinine of 1.61. Liver function tests are unremarkable. Troponin is 0.063 and trended 0.066. BNP was 6050. Coags are unremarkable. EKG showed low voltage overall, atrial fibrillation with slow ventricular response. Chest x-ray showed low lung volumes with generalized hazy appearance representing pulmonary edema. Case is discussed with the emergency room physician and decision was made to admit the patient to hospital for heart failure exacerbation. Patient was consulted on by cardiology, who recommended an echocardiogram and diuretics. Patient received Lasix 40 mg IV 3 times a day then was discharged on 40 mg daily. Echocardiogram showed preserved ejection fraction, right ventricular dilation, severe biatrial enlargement, mild to moderate aortic regurgitation. Patient should follow-up with cardiology upon discharge. I spent 34 minutes coordinating this discharge on 10/19 Gen: awake, alert HEENT: normocephalic, atraumatic, good hearing acuity, moist mucous membranes Resp: good air exchange, breathing comfortably with no accessory muscle use CVS: good distal perfusion x 4, GI: soft, NTTP, ND : no SPT, no CVAT, velazquez catheter not present MSK: bilateral pitting edema, no clubbing Neuro: non-focal, moving all extremities Psych: cooperative, euthymic mood Patient Condition at Discharge: Good Plan - Discharge Summary Discharge Rx Participant: Yes New Discharge Prescriptions: Continue Apixaban [Eliquis] 5 mg PO BID buPROPion XL [Wellbutrin XL] 300 mg PO DAILY #30 tab.er.24h Fexofenadine HCl [Marjorie Allergy] 180 mg PO DAILY Metoprolol Tartrate [Lopressor] 50 mg PO BID Gabapentin 600 mg PO BID Carbidopa-Levodopa 25-100 mg [Sinemet 25-100 mg] 1.5 tab PO TID Rosuvastatin [Crestor] 20 mg PO DAILY Memantine [Namenda] 5 mg PO BID Spironolactone [Aldactone] 50 mg PO DAILY Cyanocobalamin (Vitamin B-12) [Vitamin B-12] 1,000 mcg PO DAILY Solifenacin Succinate 10 mg PO DAILY bisacodyL [Dulcolax] 5 mg PO BID Multivitamins, Thera [Multivitamin (formulary)] 1 tab PO DAILY Docusate 50mg 50 mg PO BID Ubidecarenone [Coenzyme Q10] 100 mg PO DAILY Changed Furosemide [Lasix] 40 mg PO DAILY #0 Discharge Medication List Apixaban [Eliquis] 5 mg PO BID 07/10/18 [History] buPROPion XL [Wellbutrin XL] 300 mg PO DAILY #30 tab.er.24h 07/10/18 [Rx] Fexofenadine HCl [Marjorie Allergy] 180 mg PO DAILY 09/12/20 [History] Carbidopa-Levodopa 25-100 mg [Sinemet 25-100 mg] 1.5 tab PO TID 10/17/22 [History] Cyanocobalamin (Vitamin B-12) [Vitamin B-12] 1,000 mcg PO DAILY 10/17/22 [Hist ory] Docusate 50mg 50 mg PO BID 10/17/22 [History] Gabapentin 600 mg PO BID 10/17/22 [History] Memantine [Namenda] 5 mg PO BID 10/17/22 [History] Metoprolol Tartrate [Lopressor] 50 mg PO BID 10/17/22 [History] Multivitamins, Thera [Multivitamin (formulary)] 1 tab PO DAILY 10/17/22 [History] Rosuvastatin [Crestor] 20 mg PO DAILY 10/17/22 [History] Solifenacin Succinate 10 mg PO DAILY 10/17/22 [History] Spironolactone [Aldactone] 50 mg PO DAILY 10/17/22 [History] Ubidecarenone [Coenzyme Q10] 100 mg PO DAILY 10/17/22 [History] bisacodyL [Dulcolax] 5 mg PO BID 10/17/22 [History] Furosemide [Lasix] 40 mg PO DAILY #0 10/19/22 [Rx] Follow up Appointment(s)/Referral(s): None,Stated [REFERRING] - 1-2 days
== END 2022-10-19 17:48 | disposition home or self-care (01) | DRG 291 ==
LOC: EC 14:59 → 3SCARD 21:14
PROVIDERS: ADMIT Internal Medicine; ATTEND Internal Medicine
DX: I13.0 Hypertensive heart and chronic kidney disease with heart failure and stage 1 through stage 4 chronic kidney disease, or unspecified chronic kidney disease (principal); I50.33 Acute on chronic diastolic (congestive) heart failure; N17.9 Acute kidney failure, unspecified; I48.19 Other persistent atrial fibrillation; F02.84 Dementia in other diseases classified elsewhere, unspecified severity, with anxiety; F02.83 Dementia in other diseases classified elsewhere, unspecified severity, with mood disturbance; G20 Parkinson's disease; Z79.01 Long term (current) use of anticoagulants; N18.30 Chronic kidney disease, stage 3 unspecified; I35.1 Nonrheumatic aortic (valve) insufficiency; I87.2 Venous insufficiency (chronic) (peripheral); I25.10 Atherosclerotic heart disease of native coronary artery without angina pectoris; E78.5 Hyperlipidemia, unspecified; M19.90 Unspecified osteoarthritis, unspecified site; T36.95XA Adverse effect of unspecified systemic antibiotic, initial encounter; Z79.899 Other long term (current) drug therapy; Z85.828 Personal history of other malignant neoplasm of skin; Z86.718 Personal history of other venous thrombosis and embolism; Z87.01 Personal history of pneumonia (recurrent); Z96.642 Presence of left artificial hip joint; Z86.14 Personal history of Methicillin resistant Staphylococcus aureus infection; Z88.0 Allergy status to penicillin
CPT/HCPCS: 36415; 71046; 80048; 80053; 83605; 83735; 83880; 84484; 85025; 85610; 85730; 87040; 93005; 93306; 94760; 96374; 96376; 99285

== ENCOUNTER 2023-08-29 05:41 | Day surgery (SDC) | payer MEDICARE ==
[~2023-08-29 05:41] MED LIST: Pre Op ABX Message 1 EACH MISC MISCELLANE ONE
[2023-08-29] MEDS ORDERED: LIDOCAINE 1% (10MG/ML) FOR IV START INTRADERMA PRN (06:11)
[2023-08-29] MEDS: IV FLUID CONTINUATION 1,000 ML IV ONE (06:13)
[2023-08-29 06:41] VITALS: TEMP 97
[2023-08-29] MEDS: LACTATED RINGERS 1,000 ML IV SCH (06:53)
[2023-08-29] MEDS: DEXAMETHASONE SOD PHOSPHATE 4 MG/ML 1 ML VIAL IV ONE (06:53)
[2023-08-29] MEDS: ONDANSETRON 4 MG/2 ML VIAL IVP ONE (06:53)
[2023-08-29 06:59] LABS: Basophils # (A) 0.1 k/uL (0-0.2); Basophils % (A) 1 %; Eosinophils # (A) 0.2 k/uL (0-0.7); Eosinophils % (A) 4 %; HCT 47.4 % (39.0-53.0); HGB 15.5 gm/dL (13.0-17.5); Lymphocytes # (A) 1.1 k/uL (1.0-4.8); Lymphocytes % (A) 18 %; MCH 33.4 pg (25.0-35.0); MCHC 32.7 g/dL (31.0-37.0); MCV 102.2 fL (80.0-100.0); Mean Platelet Volume 8.3; Monocytes # (A) 0.4 k/uL (0-1.0); Monocytes % (A) 7 %; Neutrophils # (A) 4.3 k/uL (1.3-7.7); Neutrophils % (A) 70 %; Platelet Count 174 k/uL (150-450); RBC 4.64 m/uL (4.30-5.90); RDW 12.3 % (11.5-15.5); WBC 6.2 k/uL (3.8-10.6)
[2023-08-29] MEDS ORDERED: HYDROmorphone 0.5 MG/0.5 ML SYRINGE IVP PRN (07:00)
[2023-08-29] MEDS ORDERED: MIDAZOLAM 2 MG/2 ML VIAL IV PRN (07:00)
[2023-08-29] MEDS ORDERED: fentaNYL (PF) 50 MCG/ML 2 ML AMP IVP PRN (07:00)
[2023-08-29] MEDS ORDERED: PROPOFOL 10 MG/ML 20 ML VIAL IV ONE (07:15)
[2023-08-29] MEDS ORDERED: fentaNYL (PF) 50 MCG/ML 2 ML AMP ONE (07:15)
[2023-08-29] MEDS ORDERED: MIDAZOLAM 2 MG/2 ML VIAL ONE (07:15)
[2023-08-29 07:17] LABS: African American GFR (CKD) 60 (>60 ml/min/1.73 sqM); Anion Gap 3 mmol/L; Blood Urea Nitrogen 31 mg/dL (9-20); Calcium 9.2 mg/dL (8.4-10.2); Carbon Dioxide 27 mmol/L (22-30); Chloride 109 mmol/L (98-107); Glucose 101 mg/dL (74-99); Non-African American GFR(CKD) 52 (>60 ml/min/1.73 sqM); Potassium 4.3 mmol/L (3.5-5.1); Sodium 139 mmol/L (137-145)
[2023-08-29] MEDS: ceFAZolin 1,000 MG in SODIUM CHLORIDE 0.9% 1,000 ML IRRIGATION ONE (07:25)
[2023-08-29] MEDS: SODIUM CHLORIDE 0.9% 100 ML with ceFAZolin 2,000 MG IV ONE (07:25)
[2023-08-29] MEDS: BUPIVACAINE (PF) 0.5% 30 ML VIAL SQ ONE (07:30)
--- NOTE | 2023-08-29 08:03 | P.OP ---
Date of Procedure: 08/29/23 Preoperative Diagnosis: 1. Calcaneal spur left foot 2. Plantar fasciitis left foot Postoperative Diagnosis: 1. Same 2. Same Procedure(s) Performed: 1. Excision of calcaneal spur left foot 2. Plantar fasciotomy left foot Implants: none Anesthesia: MAC, local Surgeon: Topher Cotter Estimated Blood Loss (ml): 5 Pathology: none sent Condition: stable Disposition: PACU Description of Procedure: The patient was brought into the operative room and placed on table supine position. Timeout was taken to confirm correct patient identifiers, correct laterality of surgery, and correct procedure. Once all staff in the room were in agreement with Timeout, IV sedation anesthesia was administered. 0.25% Marcaine was injected as a localized block on the left heel. A tourniquet was placed on the left calf. The left foot was then prepped and draped usual manner. The left foot was exsanguinated and the tourniquet inflated to 250 mmHg. Utilizing direct fluoroscopic visualization, the foot was placed in a lateral position on the plate. Metallic marker was used to target the calcaneal senior db2 systems programmer fluoroscopy. An incision was made along the medial aspect of the heel just over the calcaneal spur. It was bluntly dissected through the subcutaneous layer until the plantar fascial was encountered. Under direct fluoroscopic visualization, a scalpel was used to resect the plantar fascial from the calcaneal spur. A rotary bur was then utilized to reduce the calcaneal spur in its entirety. Fluoroscopy confirmed the total removal of the calcaneal spur. The bone material was expressed from the area. It was then thoroughly irrigated and suctioned to remove any remaining bone material. Skin closure was done with 3-0 nylon. Nonadherent gauze and a bulky dry dressing applied to the left foot. The tourniquet was released and capillary refill return to all digits on the left foot. The patient tolerated above procedure and anesthesia well and went to recovery with vital signs stable
[2023-08-29 08:24] VITALS: RESP 16
[2023-08-29 08:40] VITALS: BP 125/81; PULSE 56
== END 2023-08-29 08:52 | disposition home or self-care (01) ==
LOC: OR 05:41
PROVIDERS: ATTEND Podiatrist
DX: M77.32 Calcaneal spur, left foot (principal); M72.2 Plantar fascial fibromatosis; I11.0 Hypertensive heart disease with heart failure; I50.9 Heart failure, unspecified; E78.5 Hyperlipidemia, unspecified; G20.A1 Parkinson's disease without dyskinesia, without mention of fluctuations; I48.91 Unspecified atrial fibrillation; Z88.0 Allergy status to penicillin; R01.1 Cardiac murmur, unspecified; I71.21 Aneurysm of the ascending aorta, without rupture; F41.8 Other specified anxiety disorders; Z79.899 Other long term (current) drug therapy; Z79.01 Long term (current) use of anticoagulants
CPT/HCPCS: 80048; 85025; 28119; J2250; J1100; J2405; J0690; J3010; J2704; J0665

== ENCOUNTER → 2023-11-10 | Outpatient (CLI) | payer MEDICARE ==
--- NOTE | 2023-11-10 12:14 | FL ---
Exam Date: 11/10/2023 11:42 AM. Modified barium swallow for dysphagia. Consistencies administered: Various consistency of barium. Fluoro time: 1 min 13 seconds. No images were sent to PACS. Please see speech pathology report. DAP: no DAP available [id number], , 11/10/2023 12:12 PM
== END | disposition home or self-care (01) ==
LOC: RADFLMAIN 10:58
PROVIDERS: ATTEND Nurse Practitioner Family
DX: R13.10 Dysphagia, unspecified (principal)
CPT/HCPCS: 74230